=== PATIENT | male | born 1950 | race Caucasian/White ===

== ENCOUNTER 2017-02-23 11:12 | Outpatient (CLI) ==
[2014-06-30 17:33] VITALS: BMI 34.1
[2017-02-23 11:46] LABS: ALBUMIN 4.3 g/dL (3.4-5.0); ALBUMIN/GLOBULIN RATIO 1.39; BILIRUBIN,TOTAL 0.63 mg/dL (0.00-1.20); BUN/CREATININE RATIO 16.32; CALCIUM 10.1 mg/dL (8.2-10.2); CREATININE 0.98 mg/dL (0.60-1.10); TOTAL PROTEIN 7.4 g/dL (5.8-8.1)
== END 2017-02-23 11:13 | disposition home or self-care (01) ==
LOC: LAB 11:12
PROVIDERS: ATTEND Internal Medicine
DX: E21.3 Hyperparathyroidism, unspecified (principal)
CPT/HCPCS: 36415; 80053; 83970

== ENCOUNTER 2017-03-04 13:01 | Observation (INO) ==
[2017-03-04] MEDS ORDERED: VASOTEC IV IVP STA ×2 (14:05→21:33)
--- NOTE | 2017-03-04 14:06 | ED.PDOC ---
General ED Provider: Dr. ROSA GARSIA JR Chief Complaint: Hypertension Stated Complaint: Intermittent periods of minor confusion. Went to Dr Tejada's office. BP was 220/120 at the office. Sent to ER per Dr Tejada for eval. BP in triage was 164/94. Pt denies H/A or other symptoms. Has lost 24 lbs over a period of a year. Pt stopped taking his lisinopril within past 30 days.[ End ] 99.2 85 20 97% 164/94 behavioral changes off medication, FRIEND STATES LETHARGIC "FOR HIM" PATIENT ADMITS NO BLOOD PRESSURE MED FOR 1-2 WEEKS - MY CHOICE DESCRIBES HEALTHY EATING AND SWEAT EXERCISE DOES NOT SHOW INSIGHT, IS AWARE HE NEEDS TO TREAT HIS BLOOD PRESSURE Time Seen by Physician: 13:40 Mode of Arrival: Walk-In Information Source: Patient Exam Limitations: No limitations, Other (overdescriptive conversation) Primary Care Provider: DWAYNE TEJADA Nursing and Triage Documentation Reviewed and Agree: No (disc with Dr Tejada) Review of Systems - Review Of Systems Constitutional: Reports: Malaise Eyes: Reports: No symptoms Ears, Nose, Mouth, Throat: Reports: No symptoms Respiratory: Reports: No symptoms Cardiac: Reports: No symptoms GI: Reports: No symptoms : Reports: No symptoms Musculoskeletal: Reports: No symptoms Skin: Reports: No symptoms Neurological: Reports: Cognitive dysfunction, Headache Endocrine: Reports: No symptoms Hematologic/Lymphatic: Reports: No symptoms All Other Systems: Other Past Medical History - Past Medical History Previously Healthy: Yes Endocrine: Reports: None, Dyslipidemia ( ELEVATED HDL ) Cardiovascular: Reports: Hypertension Respiratory: Reports: None Hematological: Reports: None Gastrointestinal: Reports: None Genitourinary: Reports: None Neuro/Psych: Reports: None Musculoskeletal: Reports: Arthritis Cancer: Reports: Unknown - Surgical History General Surgical History: Reports: None, Orthopedic (HIP REPLACEMENT TIMES 2) - Family History Family History: Reports: Unknown - Social History Smoking Status: Never smoker Hx Substance Use: No Alcohol Screening: Occasionally Physical Exam - Physical Exam Appearance: Well-appearing Eyes: SHEREEN, EOMI, Conjunctiva clear ENT: Ears normal, Nose normal, Oropharynx normal Neck: Supple Respiratory: Airway patent, Breath sounds clear, Breath sounds equal, Respirations nonlabored Cardiovascular: RRR, Pulses normal, No rub, No murmur GI/: Soft, Nontender, No masses, Bowel sounds normal, No Organomegaly Musculoskeletal: Normal strength, ROM intact, No edema, No calf tenderness Skin: Warm, Dry, Normal color Neurological: Sensation intact, Motor intact, Reflexes intact, Cranial nerves intact, Alert, Oriented Interpretation - Radiology Interpretation Radiology Interpretation By: Radiologist Radiology Results: No acute changes Exam Interpreted: CXR Radiology Interpretation By: Radiologist Radiology Results: No acute changes Exam Interpreted: CT Scan (SINUSITIS RIGHT MAXILLARY) Critical Care Note - Critical Care Note Total Time (mins): 5 Course - Course Hematology/Chemistry: 03/04/17 14:20 03/04/17 14:20 Orders, Labs, Meds: Lab Review 03/04/17 03/04/17 03/04/17 14:20 14:25 15:25 WBC 6.11 RBC 4.60 L Hgb 14.2 Hct 39.7 L MCV 86.3 MCH 30.9 MCHC 35.8 H RDW Coeff of Keo 13.0 Plt Count 302 Immature Gran % (Auto) 0.3 Neut % (Auto) 63.9 Lymph % (Auto) 20.6 Erie % (Auto) 12.8 H Eos % (Auto) 1.6 Baso % (Auto) 0.8 Immature Gran # (Auto) 0.0 Neut # 3.9 Lymph # 1.3 Erie # 0.8 Eos # 0.1 Baso # 0.1 D-Dimer (Manual) 553.32 Puncture Site L rad O2 Saturation 92.0 L ABG pH 7.412 ABG pCO2 37.7 ABG pO2 62.0 L ABG HCO3 24.0 ABG Total CO2 25 ABG Base Excess -1 Rober Test + FiO2 % 21.0 Sodium 130 L Potassium 3.6 Chloride 95 L Carbon Dioxide 25 Anion Gap 13.6 BUN 13 Creatinine 0.98 Estimated GFR (MDRD) 77.00 BUN/Creatinine Ratio 13.26 Glucose 94 Calcium 9.8 Total Bilirubin 0.80 AST 32 ALT 34 Alkaline Phosphatase 69 Total Creatine Kinase 757 CK-MB (CK-2) 9.2 H* CK-MB (CK-2) % 1.90674 Troponin I < 0.0100 B-Natriuretic Peptide < 10 Total Protein 7.3 Albumin 4.1 Globulin 3.2 Albumin/Globulin Ratio 1.28 Urine Color Yellow Urine Clarity Clear Urine pH 6.5 Ur Specific Alpine 1.010 Urine Protein Negative Urine Glucose (UA) Negative Urine Ketones 1+ Urine Blood Trace-lysed Urine Nitrite Negative Urine Bilirubin Negative Urine Urobilinogen 1.0 Ur Leukocyte Esterase Negative Urine Microscopic RBC 0-2 Ur Squamous Epith Cells 0-2 Orders Category Date Time Status ADMIT PATIENT INPATIENT .TO [facility] (MONITORED BED) ADMISSION 03/04/17 17: 34 Active ABG DRAW REQUEST Stat CARDIO 03/04/17 14:04 Completed EKG-(ED ONLY) Stat CARDIO 03/04/17 14:03 Completed ACTIVITY .Early Mobilization for VTE Prevention CARE 03/04/17 17:34 Active INTAKE & OUTPUT Q8HR CARE 03/04/17 17:34 Active NPO REMINDER: IMAGING ONCE CARE 03/04/17 14:05 Completed Neuro Check [NEUROLOGICAL CHECKS] Q2HR CARE 03/04/17 17:36 Active TELEMETRY MONITORING TELE CARE 03/04/17 17:35 Active VITAL SIGNS Q4HR CARE 03/04/17 17:34 Active CARDIAC DIET DIETARY 03/04/17 Dinner Ordered ED SENIOR ACCOUNTANT CPA APPLIED .ONCE EMERGENCY 03/04/17 14:03 Active ED IV/MEDIPORT/POWERPORT .ONCE EMERGENCY 03/04/17 14:03 Active ABG Stat LAB 03/04/17 14:25 Completed B-TYPE NATRIURETIC PEPTIDE Stat LAB 03/04/17 14:20 Completed CBC W/ AUTO DIFF DAILY@0600 LAB 03/05/17 06:00 Ordered CBC W/ AUTO DIFF DAILY@0600 LAB 03/06/17 06:00 Ordered CBC W/ AUTO DIFF DAILY@0600 LAB 03/07/17 06:00 Ordered CBC W/ AUTO DIFF DAILY@0600 LAB 03/08/17 06:00 Ordered CBC W/ AUTO DIFF DAILY@0600 LAB 03/09/17 06:00 Ordered CBC W/ AUTO DIFF DAILY@0600 LAB 03/10/17 06:00 Ordered CBC W/ AUTO DIFF DAILY@0600 LAB 03/11/17 06:00 Ordered CBC W/ AUTO DIFF DAILY@0600 LAB 03/12/17 06:00 Ordered CBC W/ AUTO DIFF DAILY@0600 LAB 03/13/17 06:00 Ordered CBC W/ AUTO DIFF DAILY@0600 LAB 03/14/17 06:00 Ordered CBC W/ AUTO DIFF DAILY@0600 LAB 03/15/17 06:00 Ordered CBC W/ AUTO DIFF DAILY@0600 LAB 03/16/17 06:00 Ordered CBC W/ AUTO DIFF DAILY@0600 LAB 03/17/17 06:00 Ordered CBC W/ AUTO DIFF DAILY@0600 LAB 03/18/17 06:00 Ordered CBC W/ AUTO DIFF DAILY@0600 LAB 03/19/17 06:00 Ordered CBC W/ AUTO DIFF DAILY@0600 LAB 03/20/17 06:00 Ordered CBC W/ AUTO DIFF DAILY@0600 LAB 03/21/17 06:00 Ordered CBC W/ AUTO DIFF DAILY@0600 LAB 03/22/17 06:00 Ordered CBC W/ AUTO DIFF DAILY@0600 LAB 03/23/17 06:00 Ordered CBC W/ AUTO DIFF DAILY@0600 LAB 03/24/17 06:00 Ordered CBC W/ AUTO DIFF Stat LAB 03/04/17 14:20 Completed COMPREHENSIVE METABOLIC PANEL DAILY@0600 LAB 03/05/17 06:00 Ordered COMPREHENSIVE METABOLIC PANEL DAILY@0600 LAB 03/06/17 06:00 Ordered COMPREHENSIVE METABOLIC PANEL DAILY@0600 LAB 03/07/17 06:00 Ordered COMPREHENSIVE METABOLIC PANEL DAILY@0600 LAB 03/08/17 06:00 Ordered COMPREHENSIVE METABOLIC PANEL DAILY@0600 LAB 03/09/17 06:00 Ordered COMPREHENSIVE METABOLIC PANEL DAILY@0600 LAB 03/10/17 06:00 Ordered COMPREHENSIVE METABOLIC PANEL DAILY@0600 LAB 03/11/17 06:00 Ordered COMPREHENSIVE METABOLIC PANEL DAILY@0600 LAB 03/12/17 06:00 Ordered COMPREHENSIVE METABOLIC PANEL DAILY@0600 LAB 03/13/17 06:00 Ordered COMPREHENSIVE METABOLIC PANEL DAILY@0600 LAB 03/14/17 06:00 Ordered COMPREHENSIVE METABOLIC PANEL DAILY@0600 LAB 03/15/17 06:00 Ordered COMPREHENSIVE METABOLIC PANEL DAILY@0600 LAB 03/16/17 06:00 Ordered COMPREHENSIVE METABOLIC PANEL DAILY@0600 LAB 03/17/17 06:00 Ordered COMPREHENSIVE METABOLIC PANEL DAILY@0600 LAB 03/18/17 06:00 Ordered COMPREHENSIVE METABOLIC PANEL DAILY@0600 LAB 03/19/17 06:00 Ordered COMPREHENSIVE METABOLIC PANEL DAILY@0600 LAB 03/20/17 06:00 Ordered COMPREHENSIVE METABOLIC PANEL DAILY@0600 LAB 03/21/17 06:00 Ordered COMPREHENSIVE METABOLIC PANEL DAILY@0600 LAB 03/22/17 06:00 Ordered COMPREHENSIVE METABOLIC PANEL DAILY@0600 LAB 03/23/17 06:00 Ordered COMPREHENSIVE METABOLIC PANEL DAILY@0600 LAB 03/24/17 06:00 Ordered COMPREHENSIVE METABOLIC PANEL Stat LAB 03/04/17 14:20 Completed CREATINE KINASE Stat LAB 03/04/17 14:20 Completed D-DIMER Stat LAB 03/04/17 14:20 Completed DRUG SCREEN (RAPID FOR ED) [DRUG SCREEN, URINE, RAPID] LAB 03/04/17 17:42 Uncollected Stat TROPONIN I Stat LAB 03/04/17 14:20 Completed URINALYSIS C & S IF INDICATED Stat LAB 03/04/17 15:25 Completed 0.9 % Sodium Chloride [Saline Flush] MEDS 03/04/17 14:03 Active 1 syr IVF PRN PRN Enalaprilat Dihydrate [Vasotec IV] MEDS 03/04/17 14:05 Discontinued 1.25 mg IVP ONCE STA Lisinopril/Hydrochlorothiazide [Lisinopril-Hctz 20-25 MEDS 03/04/17 17:45 Ordered mg Tab] 1 tab PO DAILY Lisinopril/Hydrochlorothiazide [Zestoretic 20-12.5 mg MEDS 03/04/17 17:37 Discontinued Tab] 1 tab PO ONCE STA RESUSCITATION STATUS Routine OTHERS 03/04/17 17:34 Ordered CHEST, 1V AP ONLY Stat RADS 03/04/17 14:[address] HEAD W/WO CONTRAST Stat RADS 03/04/17 14:04 Completed MRI BRAIN W/WO CONTRAST Stat RADS 03/05/17 06:40 Ordered ULTRASOUND DOPPLER CAROTID [U/S DOPPLER CAROTID] Stat RADS 03/04/17 15:45 Completed Medications Generic Name Dose Route Start Last Admin Trade Name Freq PRN Reason Stop Dose Admin Non-Formulary Medication 1 tab 03/04/17 17:45 03/04/17 19:51 Lisinopril/Hydrochlorothiazide [Lisinopril-Hctz 20-25 Mg Tab] PO Not Given DAILY BHANU Sodium Chloride 1 syr 03/04/17 14:03 03/04/17 14:40 Saline Flush IVF 1 syr PRN PRN Administration To flush IV Discontinued Medications Generic Name Dose Route Start Last Admin Trade Name Freq PRN Reason Stop Dose Admin Enalaprilat 1.25 mg 03/04/17 14:05 03/04/17 14:39 Vasotec Iv IVP 03/04/17 14:06 1.25 mg ONCE STA Administration Lisinopril/HCTZ 1 tab 03/04/17 17:37 03/04/17 18:07 Zestoretic 20-12.5 Mg Tab PO 03/04/17 17:38 Not Given ONCE STA Vital Signs: Temp Pulse Resp BP Pulse Ox 03/04/17 13:04 99.2 F 85 20 164/94 H 97 Departure - Departure Time of Disposition: 17:30 Disposition: ADMITTED INPATIENT Discharge Problem: Essential hypertension Condition: Stable Pt referred to PMD for follow-up: Yes Allergies/Adverse Reactions: Allergies No Known Allergies Allergy (Unverified 06/30/14 17:42) Home Medications: Ambulatory Orders Aspirin [Aspirin Chewable] 81 mg PO BID 03/04/17
[2017-03-04 14:36] LABS: ABG PCO2 37.7 mmHg (35-45); ABG PH 7.412 (7.35-7.45)
[2017-03-04 14:36] LABS: BASOPHILS # (AUTO) 0.1 K/uL (0-0.2); BASOPHILS % (AUTO) 0.8 % (0.0-3.0); EOSINOPHILS # (AUTO) 0.1 K/ul (0.0-0.7); EOSINOPHILS % (AUTO) 1.6 % (0.0-7.0); HEMATOCRIT 39.7 % (42.0-52.0); HEMOGLOBIN 14.2 g/dl (14.0-18.0); IMMATURE GRANULOCYTE % (AUTO) 0.3 % (0.0-5.0); LYMPHOCYTES # (AUTO) 1.3 K/uL (0.60-3.4); LYMPHOCYTES % (AUTO) 20.6 (10.0-50.0); MEAN CORPUSCULAR HEMOGLOBIN 30.9 pg (27.0-31.0); MEAN CORPUSCULAR HGB CONC 35.8 (31.8-35.4); MEAN CORPUSCULAR VOLUME 86.3 fl (80.0-94.0); MONOCYTES # (AUTO) 0.8 K/uL (0.4-2.0); MONOCYTES % (AUTO) 12.8 (0-10); NEUTROPHILS # (AUTO) 3.9 K/ul (2.0-6.9); NEUTROPHILS % (AUTO) 63.9; PLATELET COUNT 302 10^3/uL (140-440); WHITE BLOOD COUNT 6.11 K/ul (4.2-10.2)
[2017-03-04 14:37] LABS: ABG BASE EXCESS -1 (-2.0-2.0); ABG TCO2 25 (22.0-28.0)
--- NOTE | 2017-03-04 15:08 | DI ---
EXAM: Chest one view HISTORY: Chest pain COMPARISON: 06/30/2014 TECHNIQUE: Single view of the chest was performed FINDINGS: The lungs are clear. Granulomatous calcification. There is no pleural effusion or pneum othorax. The heart is normal in size. The mediastinal contour is normal. There are no acute abnor malities of the bones. IMPRESSION: No acute cardiopulmonary process.
[2017-03-04 15:29] LABS: ALANINE AMINOTRANSFERASE 34 U/L (12-78); ALBUMIN 4.1 g/dL (3.4-5.0); ALBUMIN/GLOBULIN RATIO 1.28; ALKALINE PHOSPHATASE 69 U/L (56-119); ANION GAP 13.6; ASPARTATE AMINO TRANSFERASE 32 U/L (15-37); BLOOD UREA NITROGEN 13 mg/dL (7-18); BUN/CREATININE RATIO 13.26; CALCIUM 9.8 mg/dL (8.2-10.2); CARBON DIOXIDE 25 mmol/L (23-31); CHLORIDE 95 mmol/L (98-107); CREATINE KINASE 757 U/L; CREATININE 0.98 mg/dL (0.60-1.10); GLUCOSE 94 mg/dL (82-115); POTASSIUM 3.6 mmol/L (3.5-5.1); SODIUM 130 mmol/L (136-145); TOTAL PROTEIN 7.3 g/dL (5.8-8.1)
[2017-03-04 15:34] LABS: CREATINE KINASE MB 9.2 ng/ml (0.0-3.6)
[2017-03-04 15:34] LABS: BILIRUBIN,URINE Negative (NEGATIVE); KETONES,URINE 1+ (NEGATIVE); LEUKOCYTE ESTERASE ,URINE Negative (NEGATIVE); NITRITE,URINE Negative (NEGATIVE); PH,URINE 6.5 (5-9); PROTEIN,URINE Negative (NEGATIVE); URINE, BLOOD Trace-lysed (NEGATIVE)
--- NOTE | 2017-03-04 15:34 | CT ---
EXAM:CT head with and without contrast HISTORY: Mental changes COMPARISON: None TECHNIQUE: Serial axial images of the brain were obtained from the skull base to the vertex with an d without IV contrast. Contrast enhanced images were performed after 75 mL is of Omnipaque 300 IV co ntrast was administered. FINDINGS: The ventricles, cisterns and sulci are normal. The chavez-white matter junction is maintain ed. No midline shift or mass is identified. There is no intra or extra axial fluid collection. The p aranasal sinuses demonstrate acute on chronic right maxillary sinus disease with hyperostosis and mi ld expansile changes to the medial maxillary sinus wall. mastoid air cells are clear. The Osseous calvarium is intact. There is scattered atherosclerotic disease at the skull base. IMPRESSION: No acute intracranial abnormality or contrast enhancing lesion. Chronic moderate generalized volume loss and chronic microangiopathy. Acute on chronic right maxillary sinus disease with bulging of the medial maxillary sinus wall. Kenan yp cannot be excluded
[2017-03-04 15:40] LABS: ADD URINE MICROSCOPIC YES
--- NOTE | 2017-03-04 17:05 | US ---
EXAM: Carotid ultrasound HISTORY: Mental status change COMPARISON: None TECHNIQUE: Carotid ultrasound was performed using hcavez scale, color, and Doppler imaging was perfor med. FINDINGS: Right carotid: There is atherosclerotic plaque in the common carotid and bulb/internal carotid cuate ry. Peak systolic velocity measurement in the right internal carotid artery is 1.0 meters per secon d. End-diastolic velocity measurement in the right internal carotid artery is 0.2 meters per second . Right internal to common carotid artery peak systolic velocity ratio is 1.2. Right vertebral art krupa not visualized. Left carotid: There is atherosclerotic plaque in the common carotid and bulb/internal carotid arter y. Peak systolic velocity measurement in the left internal carotid artery is 1.0 meters per second. End-diastolic velocity measurement in the left internal carotid artery is 0.2 meters per second. Left internal to common carotid artery peak systolic velocity ratio measures 0.7. Flow in the left vertebral artery is antegrade. IMPRESSION: 1. Right internal carotid: Mild (less that measures at) stenosis 2. Left internal carotid: Mild (less than 50%) stenosis. 3. Right vertebral artery not visualized. Antegrade flow left vertebral artery.
[2017-03-04] MEDS ORDERED: ZESTORETIC 20-12.5 MG TAB PO STA (17:37)
[2017-03-04] MEDS ORDERED: HYDROCHLOROTHIAZIDE ONE (17:59)
[2017-03-04] MEDS ORDERED: ZESTRIL ONE (17:59)
[2017-03-04 19:27] VITALS: BMI 32.5
[2017-03-04 20:19] LABS: COCAIN SCREEN,URINE NEGATIVE (NEGATIVE)
[2017-03-04] MEDS ORDERED: XANAX PO PRN (21:34)
[2017-03-04] MEDS ORDERED: NORVASC PO STA (21:35)
[2017-03-04] MEDS: ZESTRIL PO SCH (21:57)
[2017-03-05 06:03] LABS: BASOPHILS # (AUTO) 0.1 K/uL (0-0.2); BASOPHILS % (AUTO) 0.9 % (0.0-3.0); EOSINOPHILS # (AUTO) 0.2 K/ul (0.0-0.7); EOSINOPHILS % (AUTO) 1.8 % (0.0-7.0); HEMATOCRIT 42.9 % (42.0-52.0); HEMOGLOBIN 15.3 g/dl (14.0-18.0); IMMATURE GRANULOCYTE % (AUTO) 0.4 % (0.0-5.0); LYMPHOCYTES # (AUTO) 1.9 K/uL (0.60-3.4); LYMPHOCYTES % (AUTO) 23.7 (10.0-50.0); MEAN CORPUSCULAR HEMOGLOBIN 30.6 pg (27.0-31.0); MEAN CORPUSCULAR HGB CONC 35.7 (31.8-35.4); MEAN CORPUSCULAR VOLUME 85.8 fl (80.0-94.0); MONOCYTES # (AUTO) 1.1 K/uL (0.4-2.0); MONOCYTES % (AUTO) 13.1 (0-10); NEUTROPHILS # (AUTO) 4.9 K/ul (2.0-6.9); NEUTROPHILS % (AUTO) 60.1; PLATELET COUNT 345 10^3/uL (140-440); WHITE BLOOD COUNT 8.17 K/ul (4.2-10.2)
[2017-03-05 06:56] LABS: ALANINE AMINOTRANSFERASE 33 U/L (12-78); ALBUMIN 4.1 g/dL (3.4-5.0); ALBUMIN/GLOBULIN RATIO 1.21; ALKALINE PHOSPHATASE 78 U/L (56-119); ANION GAP 13.8; ASPARTATE AMINO TRANSFERASE 28 U/L (15-37); BILIRUBIN,TOTAL 0.59 mg/dL (0.00-1.20); BLOOD UREA NITROGEN 16 mg/dL (7-18); BUN/CREATININE RATIO 13.67; CALCIUM 10.1 mg/dL (8.2-10.2); CARBON DIOXIDE 23 mmol/L (23-31); CHLORIDE 93 mmol/L (98-107); CREATINE KINASE 551 U/L; CREATININE 1.17 mg/dL (0.60-1.10); GLUCOSE 116 mg/dL (82-115); MYOGLOBIN 229 ng/ml; POTASSIUM 3.8 mmol/L (3.5-5.1); SODIUM 126 mmol/L (136-145); TOTAL PROTEIN 7.5 g/dL (5.8-8.1)
[2017-03-05] MEDS: ASPIRIN CHEWABLE PO SCH (08:55)
[2017-03-05] MEDS: ZESTRIL PO SCH ×2 (09:07→20:18)
--- NOTE | 2017-03-05 11:12 | US ---
EXAM: Ultrasound renal Doppler. HISTORY: Hypertension. COMPARISON: None available. TECHNIQUE: Castillo-scale and color Doppler images. FINDINGS: Right kidney measures 10.8 cm in length. There is no hydronephrosis. Peak systolic velocity measurement in the right renal artery are 0.7, 0.9 and 1.9 meters per second in the origin, midportion and distal portion respectively. Right renal artery to aortic ratios lara ure 0.53, 0.69 and 1.46. Right renal resistive index measures 0.54. Left kidney measures 11 cm in length. There is no hydronephrosis. Peak systolic velocity measurements in the left renal artery are 1.3, 2.5 and 1.0 meters per second in the origin, midportion and distal portion respectively. Left renal artery to aortic ratios measu re 1.0, 1.92 and 0.77. Left renal resistive index measures 0.72. Venous outflow is seen bilaterally. IMPRESSION: Elevated velocities in the mid left and distal right renal arteries could represent hemodynamically significant stenosis.
--- NOTE | 2017-03-05 11:23 | US ---
EXAM: Ultrasound retroperitoneal complete. HISTORY: Hypertension. COMPARISON: None available. TECHNIQUE: Multiple chavez scale and color Doppler images. FINDINGS: Right kidney measures 10.8 x 5.1 x 5.3 cm. The left kidney measures 11 x 6.3 x 5.2 cm. There may be simple cysts bilaterally measuring up to 1.5 cm on the right and 0.8 cm on the left. C ortical echogenicity is normal. There is no hydronephrosis. Urinary bladder is unremarkable. IMPRESSION: No acute sonographic abnormality of the kidneys or bladder.
[2017-03-05] MEDS ORDERED: XANAX ONE (13:58)
[2017-03-05] MEDS ORDERED: XANAX PO SCH (15:00)
--- NOTE | 2017-03-05 20:10 | MRI ---
EXAM: Brain MRI with and without contrast. HISTORY: Mental status changes. COMPARISON: Head CT 03/04/2017. TECHNIQUE: Multiplanar, multisequence MR images were acquired of the brain before and after adminis tration of intravenous contrast. FINDINGS: The midline structures are central. The right cerebellar tonsil is larger than the left and it extends 2 mm below the foramen magnum which is within normal limits. The left tonsil extends to the foramen magnum. Both tonsils have a normal rounded configuration. There is mild enlargemen t of the subarachnoid space around both frontal and parietal lobes at the convexity and mild promine nce of the sulci. The ventricles are normal in size and configuration. These findings are consiste nt with normal variation. No abnormal extra-axial fluid collections are present. The brain parenchyma has no diffusion restriction to suggest acute hypoperfusion or infarction. The re is a thin rim of periventricular T2 hyperintensity and small T2 hyperintensities are scattered in the supratentorial white matter, greatest in the left frontal lobe and in the left basal ganglia. This is consistent with minor leukoencephalopathy. There is no abnormal dark gradient echo signal. After administration of contrast, no abnormal enhancing masses are identified. The corpus callosum is normal in configuration. The pituitary gland is normal in size and has homogeneous contrast enha ncement. There are no intraorbital masses. Mild mucosal thickening is present in the rudimentary frontal sinu s and there is opacification of the right anterior and middle ethmoid air cells. There is expansile mild to moderate polypoid mucosal thickening in the right maxillary sinus which contains intermedia te to mildly hyperintense T1 and T2 signal complex fluid that may contain hemorrhage or debris. Ther e is occlusion of the right ostiomeatal unit. Middle ears and mastoids are clear. No abnormal cont rast enhancement is present in the internal auditory canals or labyrinthine structures. Flow voids are present in the major intracranial arteries and dural venous sinuses. IMPRESSION: 1. No intracranial mass, hemorrhage or acute cerebral infarct. 2. Acute and chronic right maxillary sinusitis. ENT consultation is advised. 3. Minor chronic ischemic small vessel disease.
[2017-03-05] MEDS: XANAX PO SCH (21:44)
[2017-03-06 04:53] LABS: BASOPHILS # (AUTO) 0.1 K/uL (0-0.2); BASOPHILS % (AUTO) 0.7 % (0.0-3.0); EOSINOPHILS # (AUTO) 0.2 K/ul (0.0-0.7); EOSINOPHILS % (AUTO) 2.1 % (0.0-7.0); HEMATOCRIT 42.2 % (42.0-52.0); IMMATURE GRANULOCYTE % (AUTO) 0.4 % (0.0-5.0); LYMPHOCYTES # (AUTO) 1.9 K/uL (0.60-3.4); LYMPHOCYTES % (AUTO) 23.8 (10.0-50.0); MEAN CORPUSCULAR HEMOGLOBIN 30.6 pg (27.0-31.0); MEAN CORPUSCULAR HGB CONC 35.5 (31.8-35.4); MEAN CORPUSCULAR VOLUME 86.1 fl (80.0-94.0); MONOCYTES # (AUTO) 1.2 K/uL (0.4-2.0); MONOCYTES % (AUTO) 14.4 (0-10); NEUTROPHILS # (AUTO) 4.7 K/ul (2.0-6.9); NEUTROPHILS % (AUTO) 58.6; PLATELET COUNT 327 10^3/uL (140-440); WHITE BLOOD COUNT 8.07 K/ul (4.2-10.2)
[2017-03-06 05:16] LABS: ALBUMIN/GLOBULIN RATIO 1.21; ANION GAP 14.9; BILIRUBIN,TOTAL 0.65 mg/dL (0.00-1.20); BUN/CREATININE RATIO 14.51; CALCIUM 10.1 mg/dL (8.2-10.2); CREATININE 1.24 mg/dL (0.60-1.10); POTASSIUM 3.9 mmol/L (3.5-5.1); TOTAL PROTEIN 7.3 g/dL (5.8-8.1)
--- NOTE | 2017-03-06 09:53 | CT ---
EXAM: CTA of the abdomen pelvis without and with IV contrast HISTORY: Renal artery stenosis COMPARISON: 03/05/2017 ultrasound TECHNIQUE: CT of the abdomen pelvis without and with IV contrast FINDINGS: Noncontrast CT images are nondiagnostic due to extensive artifact. The abdominal aorta is normal in caliber. There is a predominately calcified atherosclerotic plaque throughout much of the abdominal aorta. The celiac and superior mesenteric arteries are patent. B oth renal arteries are patent. There is limited evaluation of the arteries due to prominent patient motion. There is the appearance of narrowing of the proximal right renal artery which could be sec ondary to stenosis or motion artifact. Evaluation of the distal aspect of the renal arteries is ess entially nondiagnostic. The inferior mesenteric artery is patent. There is calcified atherosclerot ic plaque of the bilateral common iliac arteries without evidence of hemodynamically significant katty nosis. Two left hepatic lobe cysts are seen with the largest measuring 1.9 cm. Other hepatic hypodensities are present which are too small to characterize. An area of probable focal fatty infiltration is se en near the falciform ligament. The gallbladder appears within normal limits. Splenic calcified gr anulomas are seen. A 1.9 cm left adrenal nodule is seen which cannot be evaluated on unenhanced imag es. The kidneys and pancreas appear grossly within normal limits. No abnormal small bowel dilation is seen. There is mild diverticulosis without evidence of divertic ulitis. The appendix is not abnormally enlarged. Evaluation of the pelvis is limited secondary to streak artifacts due to the bilateral hip prosthesi s. No free air or free fluid is seen. There are mild degenerative changes of the spine. IMPRESSION: Significantly limited evaluation of the renal arteries due to patient motion artifacts. Apparent na rrowing of the proximal right renal artery could be artifactual or secondary to stenosis. Repeat CT could be considered if clinically indicated. 1.9 cm left adrenal nodule. Follow-up adrenal protocol CT recommended. Alternatively this could be further evaluated on follow-up CTA without and with IV contrast. Hepatic cysts and other hypodensities too small to characterize. Diverticulosis without evidence of diverticulitis. Atherosclerosis.
[2017-03-06] MEDS: XANAX PO SCH (10:25)
[2017-03-06] MEDS: ASPIRIN CHEWABLE PO SCH (10:25)
[2017-03-06] MEDS: ZESTRIL PO SCH (10:26)
--- NOTE | 2017-03-06 10:31 | NM ---
EXAM: Myocardial perfusion imaging HISTORY: Hypertension and elevated cardiac enzymes COMPARISON: None. TECHNIQUE: Patient was injected 4 mCi of thallium 201 chloride intravenously while at rest. SPECT i maging of the heart was acquired. Patient was stressed on a treadmill using Puma protocol and at p eak exercise injected 25.4 mCi of Tc99m Sestamibi intravenously. Another SPECT imaging of the heart was performed. Gated cardiac study was acquired. FINDINGS: Post stress study shows normal left ventricular cavity size. Isotope distribution is homo geneous in the left ventricle myocardium. There is no evidence of exercise induced reversible ische steve. No fixed defect is identified. Left ventricular ejection fraction is 86%. Wall motion is nor mal. IMPRESSION: 1. SPECT myocardial imaging at stress and rest is normal. 2. Normal cardiac systolic function and normal wall motion
[2017-03-06 11:32] VITALS: BP 162/84; TEMP 98
--- NOTE | 2017-03-06 14:58 | PN ---
DATE OF SERVICE: 03/05/17 SUBJECTIVE: This 66-year-old white male was seen in the office as his friend, Ac Aggarwal, called me that he was acting somewhat abnormal, talking quite a lot, that was on 03/03/17. The patient was seen in the office where his blood pressure was the first time recorded as 220/117. The patient had stopped taking his antihypertensive medication anywhere from one week to three weeks. The patient also has severe dyslipidemia for which he has declined to take medicine for several years. Physical examination was practically unremarkable with normal neurological status. I talked to him for 20 to 25 minutes in the room where he showed me his family pictures; he was very rational, was calm. Repeat blood pressure was still recorded systolic more than 200 with diastolic approximately 100. In the meantime, I explained to him that he may need to be in the emergency room to have certain tests done and if they are really abnormal then may have to be transferred to the place where there is a facility to have neurological services or other clinical services. At that time, he was somewhat reluctant but then his brother from [place], [place] drove over and we waited for him to come then we had a good discussion and he agreed to go to the emergency room where he underwent CT scan of the head, which was reported as normal except for involutional changes with brain atrophy , no stroke was noted. Carotid scan showed less than 50% of blockage. The patient was given Vasotec and his medication, Lisinopril p.o. with hydrochlorothiazide. The CK-MB was borderline with elevated CK level with negative troponin. The patient's EKG showed sinus rhythm, no acute changes. The patient was then hospitalized for further workup. This morning, the patient was very rational. The patient had been agitated with abusive behavior on the evening of 03/03/17 to the nursing staff. This morning the patient has been extremely rational. To me he has been very friendly and warm. He agreed to undergo any tests that he has to do. His former was there. He was very understanding and obedient. He underwent echocardiogram which showed LVH with normal contractility with enlarged LA cavity. There is no known use of any drugs from the street. The patient has been very talkative, talks about a lot of things. Everything he talks about happened in the past. Nothing was fictional. He didn't seem to be emotional according to the ex- . His sodium was 126 otherwise. The rest of the blood tests were unremarkable. Sodium 126 otherwise. The rest of the blood tests were unremarkable except for elevated CK, borderline MB fraction. Telemetry did not show any arrhythmias of any significance. It was then decided that the patient needs to be on angiolytics. He has anxiety syndrome. He was put on Xanax 0.25 t.i.d. I interviewed the patient again at approximately 4:30 p.m. The patient' s behavior was as usual to me, very cordial and he was going for MRI of the brain with contrast. The patient is to undergo a Dobutamine Stress Sestamibi in the morning for coronary artery disease to rule out significant coronary artery disease. He has been thoroughly explained about coronary artery disease and risk factors and how to modify them, strongly advised to take statins or strongly advised to take his medications. With medication this is more or less under control. In the morning time it was reported as 142/79. His neurological status is normal. The patient was seen by [facility] and did not find him suicidal or homicidal. They thought he had anxiety and he means no harm to anyone. The patient seems to have settled down and agreed for the workup. He also underwent renal scan to rule out any renal artery stenosis. CONDITION: Stable. Other notable factors: Creatinine 0.9, BUN 13, potassium 3.6, sodium 130 this morning. BNP normal. REVIEW OF SYSTEMS: CONSTITUTIONAL: No night sweats. No fatigue, malaise, lethargy. No fever or chills. HEENT: Eyes: No visual changes. No eye pain. No eye discharge. ENT: No runny nose. No epistaxis. No sinus pain. No sore throat. No odynophagia. No congestion. RESPIRATORY: No cough, no congestion. No hemoptysis. CARDIOVASCULAR: No angina symptoms. No CHF symptoms. No atypical chest pain for CAD. No palpitations. No shortness of breath. GASTROINTESTINAL: No abdominal pain. No nausea or vomiting. No diarrhea or constipation. No hematemesis. No hematochezia. GENITOURINARY: No urgency. No frequency. No dysuria. No hematuria. No obstructive symptoms. No discharge. No pain. No significant abnormal bleeding. MUSCULOSKELETAL: No musculoskeletal pain; no joint swelling. NEUROLOGICAL: No headache. No neck pain. No syncope. No seizures. No dizziness. PSYCHIATRIC: Not anxious. No depression. No suicidal thoughts. No homicidal thoughts. SKIN: No rash. No lesions. No wounds. ENDOCRINE: No unexplained weight loss. No weight gain. HEMATOLOGIC/LYMPHATIC: No anemia. No purpura. No petechiae. No prolonged or excessive bleeding. No palpable lymph nodes. PHYSICAL EXAMINATION: GENERAL: The patient is , lying/sitting in bed in no distress. VITAL SIGNS: HEENT: Head normocephalic, atraumatic. Eyes: Extraocular muscles are intact. Pupils are equal, round and reactive to light and accommodation. Ears: No lesions. Nose appeared normal. Throat: No exudate or erythema. NECK: Supple. No JVD, no carotid bruit. No lymphadenopathy or thyromegaly. LUNGS: Clear to auscultation. Percussion note normal. Chest symmetrical. HEART: S1, S2, no S3. No murmurs. No cyanosis or clubbing. No ascites. Pulses: Dorsalis pedis and posterior tibial pulses +1 to +2 both sides. ABDOMEN: Soft. Nontender. Bowel sounds active. No CVA tenderness. No mass felt. EXTREMITIES: No edema. Full range of motion of all extremities, equal. NEUROLOGIC: No focal deficit. Cranial nerves II through XII are grossly intact. No headache, no double vision or headache. SKIN: Not dry. Intact. Turgor - normal. LYMPHATIC: No palpable lymph nodes/no lymphedema. MUSCULOSKELETAL: Normal joints with no swelling. Muscle tone is normal. TIME SPENT: More than 30 minutes. Plan and coordination of the patient's care discussed in the presence of nurse. FAIZA
--- NOTE | 2017-03-09 11:39 | PN ---
The patient, Houston Cooley was seen in the office on 03/04/17 instead of 03/03 and the patient was admitted on 03/04/17 after being seen in the office. Note was dictated for 03/05/17 and what happened during the daytime. Dr. Mason KENDALL
--- NOTE | 2017-03-09 12:35 | DS ---
DATE OF SERVICE: 03/06/17 FINAL DIAGNOSIS: 1. HYPERTENSIVE AGENCY RESOLVED 2. RENAL ARTERY STENOSIS PER CT SCAN, QUESTIONABLE 3. ANXIETY 4. NONCOMPLIANCE DISCHARGE INSTRUCTIONS: Followup appointment with Dr. Cuevas in one week. MEDICATIONS AT DISCHARGE: 1. Aspirin 81 mg p.o. b.i.d. NEW PRESCRIPTIONS: 1. Lisinopril 20 mg p.o. b.i.d. 2. Xanax 0.25 mg p.o. b.i.d. p.r.n. DIET INSTRUCTIONS: Healthy Heart ACTIVITY: As much as tolerated. SMOKING: N/A DISEASE SPECIFIC EDUCATION: Risk of uncontrolled high blood pressure and risk of stroke have been discussed with the patient. The patient verbalized understanding. HOSPITAL COURSE: This is a 66-year-old male patient who initially went to the office where he was very lethargic, not himself with blood pressure 200/110. He was sent to the emergency room for evaluation. CT of the head was negative for stroke. The patient was admitted for hypertensive urgency. Carotid ultrasound did not show any blockage. MRI of the brain the next day was negative. Abdominal ultrasound was questionable for renal artery stenosis so Dr. Cuevas ordered the CT angiogram. Meanwhile, elevated CK-MB was present 9.[address] Cuevas did the echocardiogram which did show left ventricular hypertrophy and left atrial enlargement, ordered stress test and Sestamibi and both were negative for any acute coronary problems. Meanwhile with the medication, Lisinopril/ Hydrochlorothiazide was changed to Lisinopril 20 mg b.i.d. Xanax 0.25 mg b.i.d. was given which did decrease his blood pressure to 128/75, 100/60, 119/70, more awake and alert, did not have any problems, walking good, eating good, no slurry speech, no choking episodes. As the patient was doing fine and better, did not have any complications he was discharged home. TIME SPENT: More than 55 minutes. FAIZA
--- NOTE | 2017-03-09 12:54 | STECHOSEST ---
Date of Test: 03/06/17 Reason for Exam: HTN, ELEVATED CARDIAC ENZYMES, CONFUSION Ordering Physician: DWAYNE TEJADA Current Medications: LISINOPRIL, ZESTRIL Physical Findings: S1, S2, NO S3 Resting EKG: SINUS RHYTHM, NO ACUTE CHANGES Target Heart Rate: 132/156 STAGE MPH/GRADE HEART RATE BPM BLOOD PRESSURE mmhg RHYTHM S-T SEGMENT UP DOWN SYMPTOMS,COMMENTS At Rest 1 1.7/10% 80 145/85 SR X NONE 2 2.5/12% 108 155/90 SR X NONE 3 3.4/14% 4 4.2/16% 5 5.0/18% Immediately after 140 170/90 SR X FATIGUE Total Time: 7:01 Maximum Heart Rate Reached: 140 Reason for Termination: FATIGUE 2 MIN POST EXERCISE: 110 BPM, 190/90 MMHG 7 MIN POST EXERCISE: 94 BPM, 148/84 MMHG INTERPRETATION: 95% OXYGEN SATURATION WITH EXERCISE ON ROOM AIR METS 10.1 1. TEST NEGATIVE FOR ISCHEMIC ST-T WAVE CHANGES 2. NO CHEST PAIN OR DISCOMFORT 3. NO ARRHYTHMIAS EXCEPT RARE PVC'S 4. BLOOD PRESSURE RESPONSE: MILD HYPERTENSION WITH EXERCISE NORMAL LEFT VENTRICULAR CONTRACTILITY--RESTING AND POST EXERCISE SESTAMIBI TO FOLLOW MTDD
--- NOTE | 2017-03-09 12:59 | ECHO2D ---
Date of Exam: 03/05/17 Ordering Physician: DWAYNE TEJADA Reason for Echo: HTN, ELEVATED CARDIAC ENZYMES, CONFUSION M-Mode Normal Adult Results LV Dimensions Normal Adult Results AoV Opening excursions >1.6 >1.6 LVEDD-base- 3.5-5.8 3.3 Ao root dimensions 2.0-3.7 3.8 LVESD-base- 3.1-4.6 L. Atrium dimensions 1.9-3.8 4.7 Post. Wall thickness 0.8-1.1 1.4 IV septum (thickness) 0.7-1.2 1.6 Post. Wall excursion 0.72-1.3 NORMAL Septal motion NORMAL Systolic motion R. Ventricular cavity 1.5-2.0 NORMAL LVEF 60% 76% Paradoxical septal wall motion NORMAL 2-D : ENLARGED LEFT ATRIAL CAVITY--NORMAL LEFT VENTRICULAR CONTRACTILITY-- NORMAL LEFT VENTRICLE SIZE, NO EFFUSION, NO THROMBUS, NORMAL VALVES M-MODE: MV: NORMAL AV: NORMAL TV: NORMAL PV: CHAMBER SIZE: ENLARGED LEFT ATRIAL CAVITY WALL MOTION: NORMAL PERICARDIUM: NORMAL INTERPRETATION: 1. MODERATE LEFT VENTRICULAR HYPERTROPHY WITH ENLARGED LEFT ATRIAL CAVITY 2. NORMAL LEFT VENTRICULAR CONTRACTILITY 3. NORMAL VALVES MTDD
--- NOTE | 2017-03-10 11:10 | ECHOSTRESS ---
Date of Exam: 03/06/17 Ordering Physician: DWAYNE TEJADA Reason for Echo: HYPERTENSION, ELEVATED CARDIAC ENZYMES, CONFUSION M-Mode Normal Adult Results LV Dimensions Normal Adult Results AoV Opening excursions >1.6 LVEDD-base- 3.5-5.8 Ao root dimensions 2.0-3.7 LVESD-base- 3.1-4.6 L. Atrium dimensions 1.9-3.8 Post. Wall thickness 0.8-1.1 IV septum (thickness) 0.7-1.2 Post. Wall excursion 0.72-1.3 Septal motion Systolic motion R. Ventricular cavity 1.5-2.0 LVEF 60% Paradoxical septal wall motion 2-D: NORMAL LEFT VENTRICULAR CONTRACTILITY--RESTING AND POST EXERCISE M-MODE: MV: AV: TV: PV: CHAMBER SIZE: WALL MOTION: NORMAL LEFT VENTRICULAR CONTRACTILITY--RESTING AND POST EXERCISE PERICARDIUM: INTERPRETATION: 1. NORMAL LEFT VENTRICULAR CONTRACTILITY--RESTING AND POST EXERCISE MTDD
--- NOTE | 2017-03-10 14:26 | HP ---
DATE OF SERVICE: 03/04/17 CHIEF COMPLAINT: Change in mental status HISTORY OF PRESENT ILLNESS: This is a 66-year-old male who is a regular office patient supposed to be on blood pressure medication. He did not feel something was right with the medication so he stopped taking medications since the beginning. Yesterday morning the patient woke up and was confused, came to the doctor's office, blood pressure was 220/110. He was not acting himself. At that time, Dr. Cuevas sent the patient to the emergency room. Blood pressure was 164/94. He doesn't have any headache or blurry vision. He lost 24 pounds over the one year. He was worried. Evaluated in the emergency room. CT of the head negative for acute stroke. Chest x-ray is negative. At that time, in view of hypertensive urgency with evaluated blood pressure and change in mental status, the patient was admitted to the hospital for that. REVIEW OF SYSTEMS: CONSTITUTIONAL: No fever, no chills. HEENT: Normal. ENDOCRINE: No weight gain; no weight loss. CVS: No chest pain. No PND, no orthopnea. No shortness of breath. No PND, no orthopnea. RESPIRATORY: No cough, no congestion. No hemoptysis. GI: No nausea, no vomiting. No abdominal pain. No melena. : No hematuria. No polyuria. MUSCULOSKELETAL: No joint swelling. PSYCHIATRIC: Change in mental status. Not acting himself. [employer]: No headache or blurred vision. SKIN: Intact, no open lesions. PAST MEDICAL HISTORY: 1. Hypertension 2. Depression - not on medication PAST SURGICAL HISTORY: 1. Two complete hip replacements three years ago PERSONAL HISTORY: Smoking - quit 2009. Very active - plays golf and works at [employer]. FAMILY HISTORY: Significant for high blood pressure. MEDICATIONS: Aspirin 81 mg p.o. b.i.d. ALLERGIES: NKDA PHYSICAL EXAMINATION: V/S: BP 171/96, respiratory rate 20, heart rate 76, temperature 97.5. HEENT: Atraumatic, normocephalic. No scleral icterus. NECK: Supple. No JVD, no bruit. No lymphadenopathy. No thyromegaly. HEART: S1, S2 normal. No murmur. No cyanosis or clubbing. No ascites. LUNGS: Clear to auscultation. No rales or rhonchi. ABDOMEN: Soft, nontender. Bowel sounds are active. No CVA tenderness. No rigidity or guarding. EXTREMITIES: No cyanosis, clubbing or pedal edema. MUSCULOSKELETAL: Normal joints, no swelling. NEUROLOGIC: The patient is awake, alert and oriented. SKIN: Intact; no open lesions. LYMPHATIC: No lymph nodes palpable. LABS: White count 6.11, hemoglobin 14.2, hematocrit 39.7, platelet count 302. D. dimer 553. ABG pH 7.412, pc02 37.7, p02 62. Sodium 130, potassium 3.6, chloride 95, bicarb 25, BUN 13, creatinine 0.98. CK-MB 9.2. Urine negative for acute infection. Toxicology is negative. ASSESSMENT: 1. Hypertensive urgency and uncontrolled hypertension with a history of bilateral hip replacement. 2. Admit the patient to the regular floor. 3. CBC and CMP today and daily. 4. Cardiac enzymes and troponins. 5. Lisinopril/Hydrochlorothiazide 20/12.5 daily 6. MRI of the brain and carotid ultrasound in the morning. 7. Xanax p.r.n. at bedtime. 8. Lisinopril 20 mg b.i.d. now. 9. Will stop the Lisinopril with Hydrochlorothiazide. TIME SPENT: More than 70 minutes today. MTDD
--- NOTE | 2017-03-26 11:59 | PN ---
DATE OF SERVICE: 03/06/17 SUBJECTIVE: The patient was admitted with hypertensive urgency and change in mental status. The patient is more awake and alert. CT of the head is negative. MRI of the brain came out with mastoiditis. Carotid ultrasound did not show any blockage. The patient went for a stress echo and sestamibi, which was evaluated. The patient's family in the room. All of their questions were answered. Blood pressure now is 130/66. REVIEW OF SYSTEMS: CONSTITUTIONAL: No fever, no chills. HEENT: Normal. ENDOCRINE: No weight gain, no weight loss. CVS: No angina symptoms. No CHF symptoms. No palpitations. No atypical chest pain for CAD. No shortness of breath. No PND, no orthopnea. RESPIRATORY: No cough, no hemoptysis. GI: No nausea, no vomiting. No abdominal pain. : No hematuria. No polyuria. MUSCULOSKELETAL:. No joint swelling. PSYCHIATRIC: Not anxious. No depression. No suicidal thoughts. No homicidal thoughts. SKIN: Intact. No rash. PHYSICAL EXAMINATION: V/S: Blood pressure 130/66, respiratory rate 16, heart rate 80, temperature 96.9. HEENT: Normocephalic, atraumatic. Mucosa dry. NECK: Supple. No JVD, no carotid bruit. No lymphadenopathy. LUNGS: Clear to auscultation. No rales or rhonchi. HEART: S1, S2 normal. No S3. No murmur, gallop or regurgitation. ABDOMEN: Soft, nontender. Bowel sounds active. No rigidity. No rebound or guarding. No CVA tenderness. EXTREMITIES: No clubbing, cyanosis or pedal edema. MUSCULOSKELETAL: No joint swelling. NEUROLOGIC: Awake, alert, oriented times three. No focal deficit. LYMPHATIC: No lymph nodes palpable. SKIN: Intact. LABS: White count is 8.07, hemoglobin 15.0, hematocrit 42.2, platelet count is 327, sodium 127, potassium 3.9, chloride 90, bicarb 26, BUN 18, creatinine 1.24. ASSESSMENT: 1. HYPERTENSIVE URGENCY 2. HYPONATREMIA, SECONDARY TO THE MEDICATIONS 3. DEPRESSION 22 YEARS AGO, RIGHT NOW NOT PLAN: 1. Discharge the patient home. 2. Lisinopril 20 mg twice daily. 3. Xanax 0.25 mg twice a day 4. Aspirin 81 mg daily with food. 5. Lifestyle modifications and weight loss were discussed. TIME SPENT: More than 30 minutes MTDD
== END 2017-03-06 14:04 | disposition home or self-care (01) ==
LOC: ED 13:01 → INTOOBSV 17:52 → MEDSURG B 17:52
PROVIDERS: ADMIT Emergency Medicine; ATTEND Emergency Medicine
DX: I16.0 Hypertensive urgency (principal); I10 Essential (primary) hypertension; E78.5 Hyperlipidemia, unspecified; I70.1 Atherosclerosis of renal artery; I51.7 Cardiomegaly; R53.83 Other fatigue; R41.0 Disorientation, unspecified; F41.9 Anxiety disorder, unspecified; R74.8 Abnormal levels of other serum enzymes; F91.9 Conduct disorder, unspecified; F41.8 Other specified anxiety disorders; Z91.14 Patient's other noncompliance with medication regimen; Z79.899 Other long term (current) drug therapy
CPT/HCPCS: 36415; 76770; 80053; 80306; 81001; 82550; 82553; 82803; 83874; 83880; 84436; 84443; 84484; 85025; 85379; 93005; 93010; 93017; 93018; 96374; 99284

== ENCOUNTER 2018-06-28 07:06 | Inpatient (IN) | payer OTHER ==
[2018-06-28] MEDS ORDERED: NITROGLYCERIN 250 ML IV ONE (07:16)
[2018-06-28] MEDS ORDERED: LASIX ONE (07:22)
[2018-06-28] MEDS ORDERED: LASIX IVP STA ×2 (07:22→08:25)
[2018-06-28] MEDS ORDERED: NITROPRESS 50 MG in DEXTROSE 5%-WATER IV SOLN 248 ML IV SCH (07:30)
--- NOTE | 2018-06-28 07:34 | DI ---
EXAM: Single frontal view of the chest HISTORY: Shortness of breath. COMPARISON: Chest x-ray 03/04/2017 and multiple priors FINDINGS: Cardiomediastinal silhouette is unremarkable. There is no pneumothorax or effusion. There is interstitial and ground-glass opacities seen throughout both lungs most pronounced near the hilum . There is no acute consolidation. The osseous structures are unremarkable. Calcified left hilar ly mph node is present. IMPRESSION: Interstitial ground-glass opacities most pronounced at the hilum may represent atypical infection ve rsus central and small airways inflammation.
[2018-06-28] MEDS ORDERED: MORPHINE 4 MG/ML VIAL IVP PRN (08:21)
[2018-06-28] MEDS ORDERED: TYLENOL PO PRN (08:21)
[2018-06-28] MEDS ORDERED: ATROPINE SULFATE PFS IVP PRN (08:21)
[2018-06-28] MEDS ORDERED: NITROSTAT SL PRN (08:21)
[2018-06-28] MEDS ORDERED: VISTARIL INJ IM PRN (08:21)
[2018-06-28] MEDS ORDERED: ZESTRIL PO STA (08:25)
[2018-06-28] MEDS ORDERED: DECADRON 4 MG/ML SDV IM STA (08:25)
--- NOTE | 2018-06-28 08:40 | ED.PDOC ---
General ED Provider: Dr. VANDANA BRUNNER Chief Complaint: Shortness of Air Stated Complaint: shortness of breath Time Seen by Physician: 07:00 (at about 6 am suddenly became short of breath ) Mode of Arrival: Walk-In Information Source: Patient Exam Limitations: No limitations Primary Care Provider: DWAYNE TEJADA Nursing and Triage Documentation Reviewed and Agree: Yes Does patient meet sepsis criteria?: No If yes, has appropriate treatment been initiated?: No System Inflammatory Response Syndrome: Resp >20/Minute Sepsis Protocol: For patient's 13 years and over: Temp is 96.8 and below OR 101 and greater Pulse >90 BPM Resp >20/minute Acutely Altered Mental Status Are patient's symptoms suggestive of a new infection, such as: -Pneumonia -Skin, Soft Tissue -Endocarditis -UTI -Bone, Joint Infection -Implantable Device -Acute Abdominal Infection -Wound Infection -Meningitis -Blood Stream Catheter Infection -Unknown Respiratory Complaint Exam - Respiratory Complaint/Exam Onset/Duration: 1 hr Symptoms Are: Still present Timing: Constant Initial Severity: Moderate Current Severity: Moderate Location: Chest Character: Reports: Non-productive cough Aggravating: Reports: URI Alleviating: Reports: None Associated Signs and Symptoms: Reports: Rapid breathing, Dyspnea, Wheezing, Nasal congestion. Denies: Fever, Chills, Chest pain, Pleuritic chest pain, Hemoptysis, Dizziness, Calf pain, Calf swelling, Edema, URI, Hoarseness, Sinus discomfort, Vomiting, Sore throat, Weight loss, Decreased oral intake, Increased thirst, Increased appetite, Increased urination History of Healthcare-Acquired Pneumonia: No Related Surgical History: Reports: None Pulmonary Embolism Risk Factors: None Cardiac Risk Factors: Reports: Hypertension Pseudomonas Risk Factors: Reports: None Tuberculosis Risk Factors: Reports: None Status Asthmaticus Risk Factors: Reports: None Home Oxygen Use: No Recent Stress Test: No Recent Echo/LV Function: No Current Antibiotic Use: No Current Asthma Medication Use: No Respiratory Distress: None Inadequate Respiratory Effort: No Dysphagia Present: No Stridor Present: No JVD Present: No Accessory Muscle Use: No Retractions: Not Present Diminished Breath Sounds: Yes Prolonged Respiration: Expiratory phase Sinus Tenderness: None Grunting Respirations: No Kussmaul Respirations: No Differential Diagnoses: Asthma, CHF, Pulmonary Edema, Pneumonia, Pulmonary Embolism, Bronchitis, Lower Resp. Infection Quality Indicators For Pneumonia: Blood Cultures-SCU admit, SpO2 assessed, Vital signs, Mental status assessed Non-Traumatic Chest Pain Syncope: EKG Performed Review of Systems - Review Of Systems Constitutional: Reports: Malaise Eyes: Reports: No symptoms Ears, Nose, Mouth, Throat: Reports: No symptoms Respiratory: Reports: Cough, Short of air Cardiac: Reports: No symptoms GI: Reports: No symptoms : Reports: No symptoms Musculoskeletal: Reports: No symptoms Skin: Reports: No symptoms Neurological: Reports: No symptoms Endocrine: Reports: No symptoms Hematologic/Lymphatic: Reports: No symptoms All Other Systems: Reviewed and Negative Past Medical History - Past Medical History Previously Healthy: Yes Endocrine: Reports: None, Dyslipidemia ( ELEVATED HDL ) Cardiovascular: Reports: Hypertension Respiratory: Reports: None Hematological: Reports: None Gastrointestinal: Reports: None Genitourinary: Reports: None Neuro/Psych: Reports: None Musculoskeletal: Reports: Arthritis Cancer: Reports: Unknown Other Pertinent Past Medical History: HTN ARTH ELEVATED HDL HIP REPLACEMENT TIMES 2 - Surgical History General Surgical History: Reports: None, Orthopedic (HIP REPLACEMENT TIMES 2) - Family History Family History: Reports: Unknown - Social History Smoking Status: Former smoker Hx Substance Use: No Alcohol Screening: Occasionally - Immunizations Tetanus Shot up to Date: (UNKNOWN) Physical Exam - Physical Exam Appearance: Ill-appearing Ill-appearing: Severe Pain Distress: Mild Eyes: SHEREEN, EOMI, Conjunctiva clear ENT: Ears normal, Nose normal, Oropharynx normal Respiratory: Breath sounds diminished, Crackles Cardiovascular: RRR, Pulses normal, No rub, No murmur GI/: Soft, Nontender, No masses, Bowel sounds normal, No Organomegaly Musculoskeletal: Normal strength, ROM intact, No edema, No calf tenderness Skin: Warm, Dry, Normal color Neurological: Sensation intact, Motor intact, Reflexes intact, Cranial nerves intact, Alert, Oriented Psychiatric: Affect appropriate, Mood appropriate Interpretation - Radiology Interpretation Radiology Interpretation By: ED Physician Exam Interpreted: CXR, Other (pulmonary edema ) Re-Evaluation - Re-Evaluation Time of Re-Evaluation: 08:00 Status: Improved Vital Signs Stable: Yes Pain Level: 0 Appearance: NAD Lungs: Other (rales persists) Skin: Warm and Dry Neuro: Alert and Oriented X3 - Re-Evaluation Time of Re-Evaluation: 08:47 Status: Improved Vital Signs Stable: Yes Pain Level: 0 Appearance: NAD Skin: Warm and Dry Neuro: Alert and Oriented X3 CV: RRR (markedely improved PMD saw pt in the ed advised admission ordered some meds which livan has given to the pt will get ct chest r/o PE) Physician Notification - Case Discussed Physician Notified: pmd Time of Notification: 08:45 (saw pt in the ed advised admission to the unit) Admit To: Inpatient Critical Care Note - Critical Care Note Total Time (mins): 90 Course - Course Hematology/Chemistry: 06/28/18 07:15 06/28/18 07:15 Orders, Labs, Meds: Lab Review 06/28/18 06/28/18 06/28/18 07:15 07:15 07:15 WBC 8.38 RBC 5.21 Hgb 16.6 Hct 48.0 MCV 92.1 MCH 31.9 H MCHC 34.6 RDW Coeff of Keo 12.6 Plt Count 293 Immature Gran % (Auto) 0.2 Neut % (Auto) 49.9 Lymph % (Auto) 37.5 Wilkin % (Auto) 8.1 Eos % (Auto) 3.6 Baso % (Auto) 0.7 Immature Gran # (Auto) 0.0 Neut # (Auto) 4.2 Lymph # (Auto) 3.1 Wilkin # (Auto) 0.7 Eos # (Auto) 0.3 Baso # (Auto) 0.1 PT 9.9 INR 0.99 APTT 24.5 Puncture Site O2 Saturation ABG pH ABG pCO2 ABG pO2 ABG HCO3 ABG Total CO2 ABG Base Excess Rober Test O2 Delivery Device Oxygen Liter Flow FiO2 % Sodium 135.9 L Potassium 4.01 Chloride 102.0 Carbon Dioxide 26.2 Anion Gap 11.71 BUN 22.7 H Creatinine 1.13 H Estimated GFR (MDRD) 65.00 BUN/Creatinine Ratio 20.08 Glucose 123.1 H Calcium 9.58 Total Bilirubin 0.63 AST 44.3 ALT 45.2 Alkaline Phosphatase 101.5 Total Creatine Kinase 167.8 CK-MB (CK-2) 1.860 CK-MB (CK-2) % 1.1000 Troponin I < 0.012 NT-Pro-B Natriuret Pep Total Protein 7.70 Albumin 4.02 Globulin 3.68 Albumin/Globulin Ratio 1.09 06/28/18 06/28/18 07:15 07:18 WBC RBC Hgb Hct MCV MCH MCHC RDW Coeff of Keo Plt Count Immature Gran % (Auto) Neut % (Auto) Lymph % (Auto) Wilkin % (Auto) Eos % (Auto) Baso % (Auto) Immature Gran # (Auto) Neut # (Auto) Lymph # (Auto) Wilkin # (Auto) Eos # (Auto) Baso # (Auto) PT INR APTT Puncture Site R rad O2 Saturation 85.0 L ABG pH 7.449 ABG pCO2 30.3 L ABG pO2 47.0 L* ABG HCO3 21 L ABG Total CO2 22 ABG Base Excess -3 L Rober Test + O2 Delivery Device Ra Oxygen Liter Flow 21.00 FiO2 % 21.0 Sodium Potassium Chloride Carbon Dioxide Anion Gap BUN Creatinine Estimated GFR (MDRD) BUN/Creatinine Ratio Glucose Calcium Total Bilirubin AST ALT Alkaline Phosphatase Total Creatine Kinase CK-MB (CK-2) CK-MB (CK-2) % Troponin I NT-Pro-B Natriuret Pep 372.000 H Total Protein Albumin Globulin Albumin/Globulin Ratio Orders Category Date Time Status ADMIT PATIENT INPATIENT .TO SCU (MONITORED BED) ADMISSION 06/28/18 08:19 Active ABG DRAW REQUEST Stat CARDIO 06/28/18 07:18 Completed EKG-(ED ONLY) Stat CARDIO 06/28/18 07:16 Completed EKG-(IP & OP ONLY) DAILY CARDIO 06/29/18 06:00 Ordered EKG-(IP & OP ONLY) DAILY CARDIO 06/30/18 06:00 Ordered EKG-(IP & OP ONLY) Stat CARDIO 06/28/18 08:21 Ordered OXYGEN Routine CARDIO 06/28/18 08:21 Ordered ACTIVITY .BR with BRP CARE 06/28/18 08:21 Active INSERT SALINE LOCK ONCE CARE 06/28/18 08:21 Active TELEMETRY MONITORING TELE CARE 06/28/18 08:20 Active TELEMETRY MONITORING TELE CARE 06/28/18 08:21 Active VITAL SIGNS Q4HR CARE 06/28/18 08:21 Active ED IV/MEDIPORT/POWERPORT .ONCE EMERGENCY 06/28/18 07:16 Active ABG Stat LAB 06/28/18 07:18 Completed CBC W/ AUTO DIFF Stat LAB 06/28/18 07:15 Completed CBC W/ AUTO DIFF Stat LAB 06/28/18 08:21 Ordered COMPREHENSIVE METABOLIC PANEL Stat LAB 06/28/18 07:15 Completed COMPREHENSIVE METABOLIC PANEL Stat LAB 06/28/18 08:21 Ordered CREATINE KINASE Q8H LAB 06/28/18 15:30 Ordered CREATINE KINASE Stat LAB 06/28/18 07:15 Completed PARTIAL THROMBOPLASTIN TIME Stat LAB 06/28/18 07:15 Completed PRO-BNP [NT-PROBNP] Stat LAB 06/28/18 07:15 Completed PT WITH INR Stat LAB 06/28/18 07:15 Completed TROPONIN I Q8H LAB 06/28/18 08:30 Ordered TROPONIN I Q8H LAB 06/28/18 16:30 Ordered TROPONIN I Stat LAB 06/28/18 07:15 Completed URINALYSIS C & S IF INDICATED Stat LAB 06/28/18 08:21 Uncollected 0.9 % Sodium Chloride [Saline Flush] MEDS 06/28/18 07:16 Active 1 syr IVF PRN PRN 0.9 % Sodium Chloride [Saline Flush] MEDS 06/28/18 13:00 Active 1 syr IVF Q8HR Acetaminophen [Tylenol] MEDS 06/28/18 08:21 Active 650 mg PO Q4H PRN Atropine Sulfate Inj [Atropine Sulfate Pfs] MEDS 06/28/18 08:21 Active 0.5 mg IVP ONCE PRN Dexamethasone 4 mg/ml Inj [Decadron 4 mg/ml Sdv] MEDS 06/28/18 08:25 Stat 4 mg IM ONCE STA Dextrose 5 %-Water [Dextrose 5%-Water IV Soln] 248 ml MEDS 06/28/18 07:30 Active Nitroprusside Sodium [Nitropress] 50 mg IV 0.5 mcg/kg/min Furosemide [Lasix] MEDS 06/28/18 08:25 Stat 20 mg IVP ONCE STA Furosemide [Lasix] MEDS 06/28/18 07:22 Discontinued 40 mg .ROUTE .STK-MED ONE Furosemide [Lasix] MEDS 06/28/18 07:22 Discontinued 40 mg IVP ONCE STA Hydroxyzine HCl [Vistaril Inj] MEDS 06/28/18 08:21 Active 25 mg IM Q4H PRN Lisinopril [Zestril] MEDS 06/28/18 08:25 Stat 20 mg PO ONCE STA Morphine Sulfate [Morphine 4 mg/ml Vial] MEDS 06/28/18 08:21 Active 4 mg IVP Q6H PRN Nitroglycerin [Nitrostat] MEDS 06/28/18 08:21 Active 0.4 mg SL Q5MIN X 3 DOSES PRN Nitroglycerin/D5w [Nitroglycerin] 250 ml MEDS 06/28/18 07:16 Discontinued IV .STK-MED CHEST, 1V AP ONLY Stat RADS 06/28/18 07:14 Completed Medications Generic Name Dose Route Start Last Admin Trade Name Freq PRN Reason Stop Dose Admin Acetaminophen 650 mg 06/28/18 08:21 Tylenol PO Q4H PRN Headache Atropine Sulfate 0.5 mg 06/28/18 08:21 Atropine Sulfate Pfs IVP ONCE PRN Symptomatic Bradycardia Hydroxyzine HCl 25 mg 06/28/18 08:21 Vistaril Inj IM Q4H PRN Nausea/Vomiting/Restlessness Sodium Nitroprusside 50 mg/ 250 mls @ 0 mls/hr 06/28/18 07:30 Dextrose IV .Q0M BHANU Protocol 0.5 MCG/KG/MIN Morphine Sulfate 4 mg 06/28/18 08:21 Morphine 4 Mg/Ml Vial IVP Q6H PRN Pain Nitroglycerin 0.4 mg 06/28/18 08:21 Nitrostat SL Q5MIN X 3 DOSES PRN Chest Pain Sodium Chloride 1 syr 06/28/18 07:16 06/28/18 07:25 Saline Flush IVF 1 syr PRN PRN Administration To flush IV Sodium Chloride 1 syr 06/28/18 13:00 Saline Flush IVF Q8HR [facility] Discontinued Medications Generic Name Dose Route Start Last Admin Trade Name Joseq PRN Reason Stop Dose Admin Dexamethasone Sodium Phosphate 4 mg 06/28/18 08:25 Decadron 4 Mg/Ml Sdv IM 06/28/18 08:26 ONCE STA Furosemide 40 mg 06/28/18 07:22 06/28/18 07:25 Lasix IVP 06/28/18 07:23 40 mg ONCE STA Administration Furosemide 20 mg 06/28/18 08:25 Lasix IVP 06/28/18 08:26 ONCE STA Lisinopril 20 mg 06/28/18 08:25 Zestril PO 06/28/18 08:26 ONCE STA Vital Signs: Temp Pulse Resp BP Pulse Ox 06/28/18 07:08 97.9 F 82 32 H 209/117 H 79 L Departure - Departure Time of Disposition: 08:46 Disposition: ADMITTED INPATIENT Discharge Problem: Pulmonary edema Qualifiers: Chronicity: acute Qualified Code(s): J81.0 - Acute pulmonary edema Condition: Good Pt referred to PMD for follow-up: Yes IPMP verified?: No Allergies/Adverse Reactions: Allergies No Known Allergies Allergy (Verified 06/28/18 07:20) Home Medications: Ambulatory Orders Aspirin [Aspirin Chewable] 2 tab PO DAILY 03/04/17 Lisinopril [Zestril] 20 mg PO DAILY #30 tablet 03/06/17 Bisoprolol Fumarate 5 mg PO DAILY 06/28/18 Disposition Discussed With: Patient, Family
[2018-06-28] MEDS ORDERED: SODIUM CHLORIDE 1,000 ML IV SCH (09:00)
[2018-06-28] MEDS ORDERED: NON-FORMULARY MEDICATION (Lisinopril [Zestril] 20 MG) PO SCH (09:00)
--- NOTE | 2018-06-28 09:54 | CT ---
EXAM: CTA CHEST (PE PROTOCOL) HISTORY: Shortness of breath, flash pulmonary edema TECHNIQUE: CTA chest with intravenous contrast. Multiplanar images were provided with 3-D reconstru ctions. 125 mL Omnipaque. COMPARISON: No comparison CT thorax. Some comparison is made to CT abdomen of 03/06/2017. FINDINGS: No pulmonary arterial filling defect is identified. Mild to moderate atherosclerotic disease. Heart size is within normal limits. No pericardial effusion. Prominent mediastinal and hilar lymph nodes are present. The motion degrades image quality especially of lung targeted images. There appears to be at least m ild pulmonary vascular congestion. There is peribronchial thickening bilaterally. Diffuse interstit ial and patchy airspace infiltrates are seen bilaterally although greater in the central and lower laura ng zones. No visible pleural fluid or pneumothorax. No acute bony abnormality. IMPRESSION: 1. No pulmonary arterial thromboembolism identified. 2. Diffuse interstitial airspace infiltrates greater in the central and lower lung zones suggesting pulmonary edema. Pneumonia could appears similar and clinical correlation will be needed. 3. Prominent mediastinal lymph nodes. 4. Mild to moderate atherosclerotic disease.
[2018-06-28 10:45] VITALS: BMI 30.2
[2018-06-28] MEDS: ASPIRIN CHEWABLE PO SCH (10:53)
[2018-06-28] MEDS: ZESTRIL PO SCH (10:54)
[2018-06-28] MEDS: ZEBETA PO SCH (10:54)
[2018-06-28] MEDS: LOVENOX SUBCUT SCH (15:11)
[2018-06-29] MEDS: LASIX IVP SCH (05:39)
[2018-06-29] MEDS: LOVENOX SUBCUT SCH (08:18)
[2018-06-29] MEDS: ZEBETA PO SCH (08:18)
[2018-06-29] MEDS: ZESTRIL PO SCH (08:18)
[2018-06-29] MEDS: ASPIRIN CHEWABLE PO SCH (08:18)
--- NOTE | 2018-06-29 10:59 | PCM.PROG ---
Attending Provider: ATTENDING PROVIDER: Dr. DWAYNE TEJADA This patient is seen with Nunu Villegas, Nurse Practitioner. DATE OF SERVICE: 06/29/18 SUBJECTIVE: This 67 year old WHITE/ M was hospitalized 06/28/18. The patient is lying in bed, resting. Repeat ABGs have significantly improved on room air. Blood pressure has been controlled. He had significant output yesterday. He is not experiencing any shortness of breath. REVIEW OF SYSTEMS: CONSTITUTIONAL: No night sweats. No fatigue, malaise, lethargy. No fever or chills. HEENT: Eyes: No visual changes. No eye pain. No eye discharge. ENT: No runny nose. No epistaxis. No sinus pain. No odynophagia. No congestion. RESPIRATORY: No cough, no congestion. No hemoptysis. No shortness of breath. CARDIOVASCULAR: No angina symptoms. No CHF symptoms. No atypical chest pain for CAD. No palpitations. No orthopnea.. GASTROINTESTINAL: No abdominal pain. No nausea or vomiting. No diarrhea or constipation. No hematemesis. No hematochezia. GENITOURINARY: No urgency. No frequency. No dysuria. No hematuria. No obstructive symptoms. No discharge. No pain. No significant abnormal bleeding. MUSCULOSKELETAL: No musculoskeletal pain; no joint swelling. NEUROLOGICAL: Awake, alert, oriented to time, place and person. No headache. No neck pain. No syncope. No seizures. No dizziness. PSYCHIATRIC: Not anxious. No depression. No suicidal thoughts. No homicidal thoughts. SKIN: No rash. No lesions. No wounds. ENDOCRINE: No unexplained weight loss. No weight gain. HEMATOLOGIC/LYMPHATIC: No anemia. No purpura. No petechiae. No prolonged or excessive bleeding. No palpable lymph nodes. PHYSICAL EXAMINATION: GENERAL: The patient is awake, alert and oriented, lying in bed in no distress. VITAL SIGNS: Temperature 98.3 F, Pulse 63, Respiratory Rate 18, BP 128/72, Pulse Ox 98% HEENT: Head normocephalic, atraumatic. Eyes: Extraocular muscles are intact. Pupils are equal, round and reactive to light and accommodation. Ears: No lesions. Nose appeared normal. Throat: No exudate or erythema. NECK: Supple. No JVD, no carotid bruit. No lymphadenopathy or thyromegaly. LUNGS: Diminished breath sounds. Clear to auscultation. Percussion note normal. Chest symmetrical. HEART: S1, S2, no S3. No murmurs. No cyanosis or clubbing. No ascites. Pulses: Dorsalis pedis and posterior tibial pulses +1 to +2 both sides. ABDOMEN: Soft. Non-tender. Bowel sounds active. No CVA tenderness. No mass felt. EXTREMITIES: No edema. Full range of motion of all extremities, equal. NEUROLOGIC: No focal deficit. Cranial nerves II through XII are grossly intact. No headache, no double vision or headache. SKIN: Not dry. Intact. Turgor-normal. LYMPHATIC: No palpable lymph nodes/no lymphedema. MUSCULOSKELETAL: Normal joints with no swelling. Muscle tone is normal. LAB REVIEW: 06/29/18 04:50 06/29/18 04:50 06/29/18 04:50: Sodium 131.6 L, Potassium 3.81, Chloride 96.7 L, Carbon Dioxide 28.8, Anion Gap 9.91, BUN 19.1, Creatinine 1.00, Estimated GFR (MDRD) 75.00, BUN /Creatinine Ratio 19.10, Glucose 110.3 H, Calcium 9.29, Total Bilirubin 0.84, AST 32.4, ALT 35.2, Alkaline Phosphatase 67.0 D, Total Protein 6.98, Albumin 3.75, Globulin 3.23, Albumin/Globulin Ratio 1.16 06/29/18 04:50: WBC 9.58, RBC 4.63 L, Hgb 14.6, Hct 41.3 L D, MCV 89.2, MCH 31.5 H, MCHC 35.4, RDW Coeff of Keo 12.3, Plt Count 282, Immature Gran % (Auto) 0.3, Neut % (Auto) 70.5, Lymph % (Auto) 19.8, Centre % (Auto) 8.8, Eos % (Auto) 0.3, Baso % (Auto) 0.3, Immature Gran # (Auto) 0.0, Neut # (Auto) 6.8, Lymph # ( Auto) 1.9, Centre # (Auto) 0.8, Eos # (Auto) 0.0, Baso # (Auto) 0.0 06/28/18 22:45: Total Creatine Kinase 215.0 H, CK-MB (CK-2) 1.990, CK-MB (CK-2) % 0.9200, Troponin I < 0.012 06/28/18 15:29: Total Creatine Kinase 225.2 H, CK-MB (CK-2) 2.160, CK-MB (CK-2) % 0.9500, Troponin I < 0.012 06/28/18 13:42: Puncture Site Rrad, O2 Saturation 99.0, ABG pH 7.582 H*, ABG pCO2 25.4 L, ABG pO2 94.0, ABG HCO3 23.9, ABG Total CO2 25, ABG Base Excess 2, Rober Test +, FiO2 % 21.0 06/28/18 13:02: Urine Color Yellow, Urine Clarity Clear, Urine pH 6.0, Ur Specific [place] <=1.005, Urine Protein Negative, Urine Glucose (UA) Negative, Urine Ketones Negative, Urine Blood Negative, Urine Nitrite Negative, Urine Bilirubin Negative, Urine Urobilinogen 0.2, Ur Leukocyte Esterase Negative 06/28/18 08:55: NT-Pro-B Natriuret Pep 408.000 H 06/28/18 08:55: Procalcitonin < 0.05 06/28/18 08:55: Lactic Acid 1.34 06/28/18 07:15: NT-Pro-B Natriuret Pep 372.000 H 06/28/18 07:15: Sodium 135.9 L, Potassium 4.01, Chloride 102.0, Carbon Dioxide 26.2, Anion Gap 11.71, BUN 22.7 H, Creatinine 1.13 H, Estimated GFR (MDRD) 65.00 , BUN/Creatinine Ratio 20.08, Glucose 123.1 H, Calcium 9.58, Total Bilirubin 0.63, AST 44.3, ALT 45.2, Alkaline Phosphatase 101.5, Total Creatine Kinase 167.8, CK-MB (CK-2) 1.860, CK-MB (CK-2) % 1.1000, Troponin I < 0.012, Total Protein 7.70, Albumin 4.02, Globulin 3.68, Albumin/Globulin Ratio 1.09 ASSESSMENT: 1. Acute pulmonary edema - improving 2. Acute respiratory failure - resolved 3. Hypertensive emergency resolving 4. History of noncompliance with medications and lifestyle PLAN: 1. Chest x-ray and echocardiogram today. 2. Lasix 40 mg IV today. Plan and coordination of the patient's care discussed in the presence of [employer] Saw Tender and nurse. CONDITION: Stable SCRIBED BY: WADE SMITH [employer] Store Manager scribed while in presence of service performed by Dr. Tejada/Nunu Villegas APRN on 06/29/18 ([id number])
--- NOTE | 2018-06-29 12:51 | HP ---
DATE OF SERVICE: 06/28/18 HISTORY OF PRESENT ILLNESS: 67-year-old white male who presents to the emergency room with shortness of breath who walked in. He stated at 6 a.m. he suddenly became short of breath. PAST MEDICAL HISTORY: Dyslipidemia Hypertension Obesity Chronic kidney disease Anxiety Psoriasis History of manic depression History of noncompliance with both diet and lifestyle and medications PAST SURGICAL HISTORY: Right total hip replacement by Dr. Obando REVIEW OF SYSTEMS: CONSTITUTIONAL: Fatigue. No night sweats. No malaise, lethargy. No fever or chills. HEENT: Eyes: No visual changes. No eye pain. No eye discharge. ENT: No runny nose. No epistaxis. No sinus pain. No sore throat. No odynophagia. No ear pain. No congestion. RESPIRATORY: Positive for cough and shortness of breath. Mild distress. No hemoptysis. CARDIOVASCULAR: No angina symptoms. No CHF symptoms. No atypical chest pain for CAD. No palpitations. No PND. No orthopnea. GASTROINTESTINAL: No abdominal pain. No nausea or vomiting. No diarrhea or constipation. No hematemesis. No hematochezia. GENITOURINARY: No urgency. No frequency. No dysuria. No hematuria. No obstructive symptoms. No discharge. No pain. No significant abnormal bleeding. MUSCULOSKELETAL: No musculoskeletal pain. No joint swelling. No arthritis. NEUROLOGICAL: No headache. No neck pain. No syncope. No seizures. No dizziness. PSYCHIATRIC: Not anxious. No depression. No suicidal thoughts. No homicidal thoughts. SKIN: No rash. No lesions. No wounds. ENDOCRINE: No unexplained weight loss. No weight gain. HEMATOLOGIC/LYMPHATIC: No anemia. No purpura. No petechiae. No prolonged or excessive bleeding. No palpable lymph nodes. PERSONAL/FAMILY/SOCIAL HISTORY: The patient is a former smoker. He admits to occasional alcohol use. He works at [employer]. He is . MEDICATIONS: (HOME) Aspirin 81 mg two tab p.o. daily Zestril 20 mg p.o. daily Bisoprolol Fumarate 5 mg p.o. daily ALLERGIES: NKDA PHYSICAL EXAMINATION: VITAL SIGNS: Temperature 97.9, heart rate 82, respirations 32, BP 209/117, pulse ox 79% on room air. HEENT: Head normocephalic, atraumatic. Eyes: Extraocular muscles are intact. Pupils are equal, round and reactive to light and accommodation. Ears: No lesions. Nose appeared normal. Throat: No exudate or erythema. NECK: Supple. No JVD, no carotid bruit. No lymphadenopathy or thyromegaly. LUNGS: Diminished breath sounds bilaterally. Moderate respiratory distress. Clear to auscultation. Percussion note normal. Chest symmetrical. HEART: S1, S2, no S3. No murmurs. No cyanosis or clubbing. No ascites. Pulses: Dorsalis pedis and posterior tibial pulses +1 to +2 bilaterally. ABDOMEN: Soft. Nontender. Bowel sounds active. No CVA tenderness. No mass felt. EXTREMITIES: Trace leg edema. Full range of motion of all extremities, equal. NEUROLOGIC: Alert. No focal deficit. Cranial nerves II through XII are grossly intact. No headache, no double vision or headache. SKIN: Not dry. Intact. Turgor - normal. LYMPHATIC: No palpable lymph nodes/no lymphedema. MUSCULOSKELETAL: Normal joints with no swelling. Muscle tone is normal. Chest x-ray shows bilateral pulmonary edema. White count 8.3, hemoglobin 16.6, hematocrit 48, platelets 293. Sodium 135.9, potassium 4.01, BUN 22.7, creatinine 1.13. Glucose 123. Total protein 7.7, troponin less than 0.01. AST 44, ALT 45. Total bili 0.6. Initial ABGs on room air 02 sat 85, pH 7.449, pc02 30.3, p02 47, bicarb 21, total co2 22. Base excess negative 3. BNP 372. ASSESSMENT: 1. ACUTE PULMONARY EDEMA 2. ACUTE RESPIRATORY DISTRESS 3. HYPERTENSIVE EMERGENCY 4. DYSLIPIDEMIA 5. OBESITY PLAN: 1. Admit to the Special Care Unit 2. Routine telemetry orders 3. CBC, CMP daily 4. Low sodium diet 5. Continue all home medications 6. EKG 7. Oxygen at 1 to 2L as needed 8. Decadron 4 mg IM 9. Lasix 40 mg IV 10. Continue all home medications 11. Vasotec 1.25 mg IV q.8hr p.r.n. 12. Will follow closely TIME SPENT: More than 70 minutes. MTDD
--- NOTE | 2018-06-29 14:09 | ECHO2D ---
Date of Exam: 06/29/18 Ordering Physician: DR. DWAYNE TEJADA Room #: [id number] Reason for Echo: PULMONARY EDEMA, COUGH, SOB M-Mode Normal Adult Results LV Dimensions Normal Adult Results AoV Opening excursions >1.6 >1.6 LVEDD-base- 3.5-5.8 4.0 Ao root dimensions 2.0-3.7 3.6 LVESD-base- 3.1-4.6 L. Atrium dimensions 1.9-3.8 4.3 Post. Wall thickness 0.8-1.1 1.2 IV septum (thickness) 0.7-1.2 1.3 Post. Wall excursion 0.72-1.3 NORMAL Septal motion NORMAL Systolic motion R. Ventricular cavity 1.5-2.0 NORMAL LVEF 60% >70% Paradoxical septal wall motion NORMAL 2-D : ENLARGED LEFT ATRIAL CAVITY--NORMAL LEFT VENTRICULAR CONTRACTILITY-- NORMAL VALVES--NO EFFUSION, NO THROMBUS M-MODE: MV: NORMAL AV: NORMAL TV: NORMAL PV: CHAMBER SIZE: ENLARGED LEFT ATRIAL CAVITY WALL MOTION: NORMAL PERICARDIUM: NORMAL INTERPRETATION: 1. LEFT VENTRICULAR HYPERTROPHY WITH ENLARGED LEFT ATRIAL CAVITY 2. NORMAL LEFT VENTRICULAR CONTRACTILITY 3. NORMAL VALVES MTDD
--- NOTE | 2018-06-29 15:17 | DI ---
Exam: Two views of the chest. Comparison: CT chest performed 06/28/2018. Reason for exam: Cough. FINDINGS: No pneumothorax, pleural effusion, or focal consolidation. The cardiac silhouette is not enlarged. The imaged osseous structures appear grossly unremarkable without acute fracture. Old gra nulomas disease is seen within mediastinum. Impression: No acute cardiopulmonary process.
[2018-06-30] MEDS: LASIX IVP SCH (05:36)
[2018-06-30] MEDS: ASPIRIN CHEWABLE PO SCH (09:15)
[2018-06-30] MEDS: ZEBETA PO SCH (09:46)
[2018-06-30] MEDS: ZESTRIL PO SCH (09:48)
[2018-06-30] MEDS: LOVENOX SUBCUT SCH (09:48)
--- NOTE | 2018-06-30 10:28 | CM.DICTOOL ---
ADMISSION: 06/28/18 08:28 DISCHARGE: 06/30/2018 FINAL DIAGNOSIS HYPERTENSIVE HEART DISEASE ACUTE PULMONARY EDEMA, RESOLVED ACUTE RESPIRATORY FAILURE, RESOLVED HYPERTENSIVE EMERGENCY, IMPROVED DYSLIPIDEMIA FORMER SMOKER, STOPPED AGE 59 BILATERAL HIP REPLACEMENT, 3-4 YRS AGO HISTORY OR NONCOMPLIANCE LIFESTYLE/MEDICATIONS LAST VITALS Temp Pulse Resp BP Pulse Ox 97.5 F L 64 16 117/72 99 06/30/18 05:35 06/30/18 05:35 06/30/18 05:35 06/30/18 05:35 06/30/18 05:35 TAKE THESE MEDICATIONS AT HOME Aspirin ([facility]in Chewable) [facility] [place] Last Admin: 06/30/18 09:15 Dose: 162 mg Bisoprolol Fumarate (Zebeta) 5 mg PO DAILY [facility] Last Admin: 06/30/18 09:46 Dose: 5 mg LASIX 20MG PO DAILY [facility] Lisinopril (Zestril) 20 mg PO DAILY [facility] Last Admin: 06/30/18 09:48 Dose: 20 mg K-TAB 10MEQ PO DAILY ALLERGIES No Known Allergies Allergy (Verified 06/28/18 07:20) NEW PRESCRIPTIONS: NEW MEDICATIONS: 1. LASIX 20MG TAKE 1 TABLET DAILY. 2. K-TAB 10MEQ TAKE 1 TABLET DAILY SMOKING: N/A DISEASE SPECIFIC EDUCATION: HYPERTENSION CHF PULMONARY EDEMA RESPIRATORY FAILURE MEDICATIONS DIET ACTIVITY LAB REVIEW: 06/30/18 04:15 06/30/18 04:15 06/30/18 04:15: Sodium 135.0 L, Potassium 4.13, Chloride 98.2, Carbon Dioxide 30.3 H, Anion Gap 10.63, BUN 27.0 H, Creatinine 1.19 H, Estimated GFR (MDRD) 61.00, BUN/Creatinine Ratio 22.68, Glucose 87.2, Calcium 9.45, Total Bilirubin 0.70, AST 32.0, ALT 35.4, Alkaline Phosphatase 61.2, Total Protein 7.23, Albumin 4.08, Globulin 3.15, Albumin/Globulin Ratio 1.29 06/30/18 04:15: WBC 6.36, RBC 4.73, Hgb 15.0, Hct 43.2, MCV 91.3, MCH 31.7 H, MCHC 34.7, RDW Coeff of Keo 12.6, Plt Count 244, Immature Gran % (Auto) 0.3, Neut % (Auto) 44.0, Lymph % (Auto) 41.2, [place] % (Auto) 10.8 H, Eos % (Auto) 2.4 , Baso % (Auto) 1.3, Immature Gran # (Auto) 0.0, Neut # (Auto) 2.8, Lymph # ( Auto) 2.6, [place] # (Auto) 0.7, Eos # (Auto) 0.2, Baso # (Auto) 0.1 PLAN: DISCHARGE TO HOME TODAY. 06/30/18 CONTINUE YOUR HOME MEDICATION PER NURSING SHEET. NEW MEDICATIONS: 1. LASIX 20MG TAKE 1 TABLET DAILY. 2. K-TAB 10MEQ TAKE 1 TABLET DAILY DIET: LOW SODIUM DIET ACTIVITY: GRADUALLY RESUME ACTIVITY TOLERATED. MONITOR YOUR WEIGHT. WEIGH DAILY AT THE SAME TIME EVERY DAY AND WITH SAME AMOUNT /TYPE OF CLOTHING. FOR WEIGHT GAIN OF 3-5 POUNDS IN 3 DAYS, CALL MD. YOU HAVE BEEN SCHEDULED FOR AN OUT PATIENT STRESS ECHO [facility] ThursdayJuly AT 0645. PLEASE ARRIVE TO OUT PATIENT REGISTRATION AT 0645. WEAR COMFORTABLE CLOTHING AND WALKING SHOES. FOLLOW UP WITH DR. TEJADA ON ThursdayJuly AT 830AM. IF UNABLE TO KEEP APPOINTMENT, PLEASE CALL TO RESCHEDULE AT [phone]. PATIENT IS A FULL CODE. ALERT AND ORIENTED X 4. STATES FEELING BETTER. WANTS TO GO HOME. Lawson PATEL APRN INTO SEE PATIENT. PLAN OF CARE DISCUSSED INCLUDING DISCHARGE INSTRUCTIONS, MEDICATIONS, ACTIVITY AND DIET. PATIENT VERBALIZES UNDERSTANDING AND AGREEMENT. APPETITE HAS BEEN FAIR. VITAL SIGNS ARE STABLE. HAS BEEN AFEBRILE. POX 99% ON ROOM AIR. HEART TONES ARE REGULAR WITH TELEMETRY REVEALING SINUS ANYA WITH FIRST DEGREE AVB AND SINUS RHYTHM. LUNGS ARE CLEAR. NO COUGH OR DYSPNEA NOTED. ABDOMEN IS SOFT, NON-TENDER WITH BOWEL SOUNDS POSITIVE IN ALL 4 QUADS. PEDAL PULSES POSITIVE WITHOUT EDEMA. HAS SALINE IN LEFT FOREARM SITE IS CLEAR. IS INDEPENDENT WITH ACTIVITIES OF DAILY LIVING. BLOOD PRESSURE HAS RETURNED TO WITHIN NORMAL LIMITS. DENIES HEADACHE OR PAIN. ECHO COMPLETED 06/30/19 WAS NORMAL WITH EJECTION FRACTION OF 70%. HAS BEEN UP AMBULATING WITHOUT DYSPNEA OR DISCOMFORT. DR. DWAYNE TEJADA MD Lawson PATEL APRN
[2018-06-30 10:44] VITALS: BP 117/75; TEMP 97.4
--- NOTE | 2018-06-30 11:20 | PCM.PROG ---
Attending Provider: ATTENDING PROVIDER: Dr. DWAYNE TEJADA This patient is seen with Nunu Villegas, Nurse Practitioner. DATE OF SERVICE: 06/30/18 SUBJECTIVE: This 67 year old WHITE/ M was hospitalized 06/28/18. The patient is up and about walking around in room. He walked in hospital yesterday, not experiencing any shortness of breath. He is eating well. No swelling. REVIEW OF SYSTEMS: CONSTITUTIONAL: No night sweats. No fatigue, malaise, lethargy. No fever or chills. HEENT: Eyes: No visual changes. No eye pain. No eye discharge. ENT: No runny nose. No epistaxis. No sinus pain. No odynophagia. No congestion. RESPIRATORY: No cough, no congestion. No hemoptysis. No shortness of breath. CARDIOVASCULAR: No angina symptoms. No CHF symptoms. No atypical chest pain for CAD. No palpitations. No orthopnea.. GASTROINTESTINAL: No abdominal pain. No nausea or vomiting. No diarrhea or constipation. No hematemesis. No hematochezia. GENITOURINARY: No urgency. No frequency. No dysuria. No hematuria. No obstructive symptoms. No discharge. No pain. No significant abnormal bleeding. MUSCULOSKELETAL: No musculoskeletal pain; no joint swelling. NEUROLOGICAL: Awake, alert, oriented to time, place and person. No headache. No neck pain. No syncope. No seizures. No dizziness. PSYCHIATRIC: Anxiety. No depression. No suicidal thoughts. No homicidal thoughts. SKIN: No rash. No lesions. No wounds. ENDOCRINE: No unexplained weight loss. No weight gain. HEMATOLOGIC/LYMPHATIC: No anemia. No purpura. No petechiae. No prolonged or excessive bleeding. No palpable lymph nodes. PHYSICAL EXAMINATION: GENERAL: The patient is awake, alert and oriented, in no distress. VITAL SIGNS: Temperature 97.5 F, Pulse 64, Respiratory Rate 16, BP 117/72, Pulse Ox 99% HEENT: Head normocephalic, atraumatic. Eyes: Extraocular muscles are intact. Pupils are equal, round and reactive to light and accommodation. Ears: No lesions. Nose appeared normal. Throat: No exudate or erythema. NECK: Supple. No JVD, no carotid bruit. No lymphadenopathy or thyromegaly. LUNGS: Clear to auscultation. Percussion note normal. Chest symmetrical. HEART: S1, S2, no S3. No murmurs. No cyanosis or clubbing. No ascites. Pulses: Dorsalis pedis and posterior tibial pulses +1 to +2 both sides. ABDOMEN: Soft. Non-tender. Bowel sounds active. No CVA tenderness. No mass felt. EXTREMITIES: No edema. Full range of motion of all extremities, equal. NEUROLOGIC: No focal deficit. Cranial nerves II through XII are grossly intact. No headache, no double vision or headache. SKIN: Not dry. Intact. Turgor-normal. LYMPHATIC: No palpable lymph nodes/no lymphedema. MUSCULOSKELETAL: Normal joints with no swelling. Muscle tone is normal. LAB REVIEW: 06/30/18 04:15 06/30/18 04:15 06/30/18 04:15: Sodium 135.0 L, Potassium 4.13, Chloride 98.2, Carbon Dioxide 30.3 H, Anion Gap 10.63, BUN 27.0 H, Creatinine 1.19 H, Estimated GFR (MDRD) 61.00, BUN/Creatinine Ratio 22.68, Glucose 87.2, Calcium 9.45, Total Bilirubin 0.70, AST 32.0, ALT 35.4, Alkaline Phosphatase 61.2, Total Protein 7.23, Albumin 4.08, Globulin 3.15, Albumin/Globulin Ratio 1.29 06/30/18 04:15: WBC 6.36, RBC 4.73, Hgb 15.0, Hct 43.2, MCV 91.3, MCH 31.7 H, MCHC 34.7, RDW Coeff of Keo 12.6, Plt Count 244, Immature Gran % (Auto) 0.3, Neut % (Auto) 44.0, Lymph % (Auto) 41.2, [place] % (Auto) 10.8 H, Eos % (Auto) 2.4 , Baso % (Auto) 1.3, Immature Gran # (Auto) 0.0, Neut # (Auto) 2.8, Lymph # ( Auto) 2.6, [place] # (Auto) 0.7, Eos # (Auto) 0.2, Baso # (Auto) 0.1 ASSESSMENT: 1. Acute pulmonary edema - resolved 2. Acute respiratory failure - resolved 3. Hypertensive emergency resolved 4. History of noncompliance with medications and lifestyle 5. Hypertenson PLAN: 1. Medication compliance discussed 2. Low salt diet 3. D/C home this afternoon 4. Continue exercise daily Plan and coordination of the patient's care discussed in the presence of Weather Stripper and nurse. CONDITION: Stable SCRIBED BY: WADE SMITH Supervisor Prop Making scribed while in presence of service performed by Dr. Tejada/Nunu Villegas APRN on 06/30/18 ([id number])
--- NOTE | 2018-06-30 13:09 | US ---
EXAM: Bilateral carotid artery Doppler History: Hypertension and dizziness. Comparison: Carotid Doppler 03/04/2017 Technique: Multiple sonographic images through the bilateral internal carotid arteries were obtained . Color duplex Doppler was used to interrogate vascular flow. Findings: The right ICA peak systolic velocity is within normal limits measuring 1.0 meters per second. The ri ght ICA/cca PSV ratio is normal at 1.5. The right vertebral artery was not visualized. Castillo scale i mages demonstrate mild plaque buildup within the right internal carotid artery. The left ICA peak systolic velocities within normal limits measuring 0.8 meters per second. The left ICA/cca PSV ratio is normal at 0.8. The left vertebral artery is patent and demonstrates antegrade flow. Castillo scale images demonstrate mild plaque buildup within the left internal carotid artery Impression: 1. No significant hemodynamic stenosis of the bilateral internal carotid arteries. 2. Nonvisualization of the right vertebral artery
--- NOTE | 2018-06-30 14:29 | PN ---
DATE OF SERVICE: 06/28/18 SUBJECTIVE: The patient was seen and examined in the ER and also in the Special Care. The patient came into the emergency room with acute shortness of breath, more or less three to four hours duration. The patient says he was unable to breathe. Arterial gases showed p02 in the 40's, pc02 was normal. The patient's chest x- ray showed acute pulmonary edema. PHYSICAL EXAMINATION: VITAL SIGNS: BP was 200/120. HEENT: Head normocephalic, atraumatic. Eyes: Extraocular muscles are intact. Pupils are equal, round and reactive to light and accommodation. Ears: No lesions. Nose appeared normal. Throat: No exudate or erythema. NECK: Supple. JVP 3 cm. No lymphadenopathy or thyromegaly. LUNGS: Crepitations bilaterally with wheeze. Percussion note normal. Chest symmetrical. HEART: S1, S2, tachycardia. No cyanosis or clubbing. No ascites. Pulses: Dorsalis pedis and posterior tibial pulses +1 to +2 both sides. ABDOMEN: Soft. Nontender. Bowel sounds active. No CVA tenderness. No mass felt. EXTREMITIES: No edema. Full range of motion of all extremities, equal. NEUROLOGIC: No focal deficit. Cranial nerves II through XII are grossly intact. No headache, no double vision or headache. SKIN: Not dry. Intact. Turgor - normal. LYMPHATIC: No palpable lymph nodes/no lymphedema. MUSCULOSKELETAL: Normal joints with no swelling. Muscle tone is normal. ASSESSMENT: 1. ACUTE PULMONARY EDEMA 2. ACUTE RESPIRATORY FAILURE 3. SEVERE HYPERTENSION According to the patient he had a lot of alcohol and a lot to eat over the weekend. He went with his friend to the [place]. The patient has history of hypertension, says he is taking his medications regularly. The patient was given 40 of Lasix IV and 20 more again IV along with oxygen supplements. I also gave him a cc of Decadron along with extra dose of Lisinopril. The patient's blood pressure now was 130/90, pulse 80/min, respiratory rate 15 with oxygen saturation 98% on room air. The patient's arterial blood gases improved remarkably with p02 more than 70, oxygen saturation of 95% on room air. The patient had put out nearly 6L of urine within 7 to 8 hours after his arrival to the emergency room. The patient was explained about CHF in detail. Residential plan is to further educate about CHF, do echocardiogram to evaluate LV function and later on to do stress test. CONDITION: Stable. PROGNOSIS: Guarded. TIME SPENT: More than 30 minutes. Plan and coordination of the patient's care discussed in the presence of nurse. FAIZA
--- NOTE | 2018-06-30 14:34 | PN ---
DATE OF SERVICE: 06/29/18 SUBJECTIVE: The patient was seen and examined with nurse practitioner. The patient's condition is stable. His symptoms of CHF have resolved. CHF education carried out. PHYSICAL EXAMINATION: HEENT: Head normocephalic, atraumatic. Eyes: Extraocular muscles are intact. Pupils are equal, round and reactive to light and accommodation. Ears: No lesions. Nose appeared normal. Throat: No exudate or erythema. NECK: Supple. No JVD, no carotid bruit. No lymphadenopathy or thyromegaly. LUNGS: Few crepitations at the bases. Percussion note normal. Chest symmetrical. HEART: S1, S2, no S3. No murmurs. No cyanosis or clubbing. No ascites. Pulses: Dorsalis pedis and posterior tibial pulses +1 to +2 both sides. ABDOMEN: Soft. Nontender. Bowel sounds active. No CVA tenderness. No mass felt. EXTREMITIES: No edema. Full range of motion of all extremities, equal. NEUROLOGIC: No focal deficit. Cranial nerves II through XII are grossly intact. No headache, no double vision or headache. SKIN: Not dry. Intact. Turgor - normal. LYMPHATIC: No palpable lymph nodes/no lymphedema. MUSCULOSKELETAL: Normal joints with no swelling. Muscle tone is normal. Chest x-ray showed improvement in his vascular congestion. Echo showed LVH with normal LV contractility and enlarged LA cavity. Valvular structures are normal. The patient very likely had hypertensive crisis with congestive heart failure with fluid overload. The patient will be worked up for coronary artery disease as an outpatient and he is up and about. His oxygen saturation on room air is 98%. CONDITION: Stable. TIME SPENT: More than 30 minutes. Plan and coordination of the patient's care discussed in the presence of nurse. FAIZA
--- NOTE | 2018-07-01 13:28 | DS ---
DATE OF SERVICE: 06/30/18 FINAL DIAGNOSIS: 1. HYPERTENSIVE HEART DISEASE 2. ACUTE PULMONARY EDEMA, RESOLVED 3. ACUTE RESPIRATORY FAILURE, RESOLVED 4. HYPERTENSIVE EMERGENCY, IMPROVED 5. DYSLIPIDEMIA 6. FORMER SMOKER, STOPPED AGE 59 7. BILATERAL HIP REPLACEMENT, 3-4 YEARS AGO 8. HISTORY OF NONCOMPLIANCE LIFESTYLE/MEDICATIONS DISCHARGE INSTRUCTIONS: Followup appointment with Dr. Cuevas on 07/07/18 at 8:30 a.m. Monitor your weight. Weigh daily at the same time every day and with the same amount/type clothing. For weight gain of 3-5 pounds in 3 days, call M.D. You have been scheduled for an outpatient stress echo Sestamibi on 07/05/18 at 0645. Please arrive to outpatient registration at 0645. Wear comfortable clothing and walking shoes. The patient is a full code. MEDICATIONS AT DISCHARGE: Aspirin 162 mg p.o. daily with meal BHANU Bisoprolol 5 mg p.o. daily BHANU Zestril 20 mg p.o. daily BHANU NEW PRESCRIPTIONS: Lasix 20 mg one tablet daily K-Tab 10 mEq one daily DIET INSTRUCTIONS: Low sodium diet ACTIVITY: Gradually resume activity as tolerated SMOKING: N/A DISEASE SPECIFIC EDUCATION: Hypertension CHF Pulmonary edema Respiratory failure Medications Diet Activity HOSPITAL COURSE: This is a 67-year-old white male who presented to the emergency room in hypertensive crisis with shortness of breath. Chest x-ray revealed bilateral pulmonary edema. Blood pressure was 200/110. He was admitted for acute respiratory failure and acute pulmonary edema. He was initially give 60 mg of IV Lasix with 1 cc of Decadron in the ER. He was admitted to the Special Care Unit, placed on oxygen at 1 to 2L as needed. Initially his ABGs were significantly abnormal however after two hours on room air, administrating the Lasix, they normalized. pH was slightly elevated but pc02 and p02 had improved. The patient does have a history of noncompliance with lifestyle and medications. He also has a history of excessive alcohol intake. He denies either one of these things, states he has been taking his medicine regularly. After the first 24 hours his blood pressure had significantly improved. Repeat chest x-ray yesterday showed no pulmonary edema. Echo yesterday showed increased LA cavity with borderline LVH, normal ejection fraction. Dr. Cuevas has diagnosed him with hypertensive heart disease. We will add to his home regimen, Lasix 20 mg daily to continue with Zestril 20 mg daily. Again, within the first 12 hours after admission he had significantly improved. Yesterday he was up and about walking around. We will schedule him for a stress echo on Thursday to be done by Dr. Cuevas as an outpatient just to rule out underlying coronary artery disease. He is discharged today in stable condition with a blood pressure of 117/72, pulse ox 99% on room air, temperature 97.5. Again chest x-ray was normal. ABGs were normal. Discharged in stable condition. TIME SPENT: More than 60 minutes. JOELLED
== END 2018-06-30 13:40 | disposition home or self-care (01) | DRG 204 ==
LOC: ED 07:06 → SCU 08:28
PROVIDERS: ADMIT Internal Medicine; ATTEND Internal Medicine
DX: R06.00 Dyspnea, unspecified (principal); J81.0 Acute pulmonary edema; J96.00 Acute respiratory failure, unspecified whether with hypoxia or hypercapnia; I16.0 Hypertensive urgency; I11.9 Hypertensive heart disease without heart failure; I10 Essential (primary) hypertension; R06.2 Wheezing; R53.81 Other malaise; R06.03 Acute respiratory distress; E78.5 Hyperlipidemia, unspecified; E66.9 Obesity, unspecified; Z91.19 Patient's noncompliance with other medical treatment and regimen
CPT/HCPCS: 36415; 80053; 81001; 82550; 82553; 82803; 83605; 83880; 84145; 84484; 85025; 85610; 85730; 87040; 93005; 93010; 96372; 96374; 96376; 99284

== ENCOUNTER 2018-07-07 06:36 | Outpatient (CLI) ==
--- NOTE | 2018-07-07 09:57 | NM ---
EXAM: Myocardial perfusion imaging HISTORY: Shortness of breath, hypertension and chest pain COMPARISON: Myocardial perfusion imaging on 03/06/2017 was normal. TECHNIQUE: Patient was injected 3.6 mCi of thallium 201 chloride intravenously while at rest. SPECT imaging of the heart was acquired. Patient was stressed on a treadmill and at peak exercise injected 24.5 mCi of Tc99m Sestamibi intravenously. Another SPECT imaging of the heart was acquired. Gated cardiac study was also performed. FINDINGS: Post stress images show normal left ventricular cavity size. Isotope distribution is homog eneous in the left ventricle myocardium. No evidence of exercise induced reversible ischemia. No fi xed defect is identified. Left ventricular ejection fraction is 70% and wall motion is normal. IMPRESSION: Normal study
--- NOTE | 2018-07-07 13:12 | ECHOSTRESS ---
Date of Exam: 07/07/18 Ordering Physician: DR. DWAYNE TEJADA Reason for Echo: HTN, SOB, CHEST PAIN, CHF, STRESS TEST --NO ISCHEMIA M-Mode Normal Adult Results LV Dimensions Normal Adult Results AoV Opening excursions >1.6 LVEDD-base- 3.5-5.8 Ao root dimensions 2.0-3.7 LVESD-base- 3.1-4.6 L. Atrium dimensions 1.9-3.8 Post. Wall thickness 0.8-1.1 IV septum (thickness) 0.7-1.2 Post. Wall excursion 0.72-1.3 Septal motion Systolic motion R. Ventricular cavity 1.5-2.0 LVEF 60% Paradoxical septal wall motion 2-D: NORMAL LEFT VENTRICULAR CONTRACTILITY--RESTING AND POST EXERCISE M-MODE: MV: AV: TV: PV: CHAMBER SIZE: WALL MOTION: NORMAL LEFT VENTRICULAR CONTRACTILITY--RESTING AND POST EXERCISE PERICARDIUM: INTERPRETATION: 1. NORMAL LEFT VENTRICULAR CONTRACTILITY--RESTING AND POST EXERCISE MTDD
--- NOTE | 2018-07-08 10:04 | STECHOSEST ---
Date of Test:07/07/18 Ordering Physician: DR. 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 Reason for Exam: HTN, SOB, CHF Smoking History: QUIT 9 YRS AGO Height: 69 "[place] 4d Weight: 196 Current Medications: LISINOPRIL, XYPROPOLOL,LASIX, POTASSIUM, ASA Resting EKG: SINUS RHYTHM/ NO ACUTE CHANGES Target Heart Rate: 131/155 S-T SEGMENT STAGE MPH/GRADE HEART RATE BPM BLOOD PRESSURE mmhg RHYTHM +/- ELEVATION DEPRESSION SYMPTOMS,COMMENTS At Rest 58 BPM 128/78 MMHG SR X NONE 1 1.7/10% 88 BPM 138/80 MMHG SR X NONE 2 2.5/12% 108 BPM 142/78 MMHG SR X NONE 3 3.4/14% 4 4.2/16% 5 5.0/18% Immediately after 125 BPM SR X FATIGUE Minutes Post Exercise 5:00 82 BPM 148/80 MMHG SR X NO COMMENTS Minutes Post Exercise Total Time: 8:00 Maximum Heart Rate Reached: 125 BPM Reason for Termination: FATIGUE 98% Oxygen saturation on room air with exercises Mets 10.1 INTERPRETATION 1. NO EVIDENCE OF ISCHEMIA BY ST-T WAVE 2. NO CHEST PAIN OR DISCOMFORT 3. ONE PVC WITH EXERCISE 4. BLOOD PRESSURE RESPONSE: NORMAL NORMAL LEFT VENTRICULAR CONTRACTILITY--RESTING AND POST EXERCISE SESTAMIBI TO FOLLOW MTDD
== END 2018-07-07 06:37 | disposition home or self-care (01) ==
LOC: CAR 06:36
PROVIDERS: ATTEND Internal Medicine
DX: R06.02 Shortness of breath (principal); I50.9 Heart failure, unspecified; I10 Essential (primary) hypertension; R07.9 Chest pain, unspecified